=== PATIENT | male | born 1925 | race Caucasian/White ===

== ENCOUNTER 2016-10-03 12:08 | Inpatient (IN) | payer MEDICARE, OTHER ==
[2016-10-03] MEDS ORDERED: Albuterol/Ipratropium 3.0-0.5 MG/3 ML Neb Soln ONE (12:15)
--- NOTE | 2016-10-03 12:36 | EDM.PDOC ---
ED HISTORY OF PRESENT ILLNESS - General Chief Complaint: Respiratory Problem Stated Complaint: sob, hypoxia Time Seen by Provider: 10/03/16 12:10 Source of Information: Reports: Patient, EMS History Limitations: Reports: Respiratory distress - History of Present Illness INITIAL COMMENTS - FREE TEXT/NARRATIVE: The patient is brought to the ER by EMS from home with complaint of shortness of breath and cough. He was recently admitted to [facility] in [place] for RLL pneumonia and treated with Levaquin and discharged on 09/01/2016. EMS reports that the patient's daughter states that he has been ill since then. The patient reports he has been coughing and short of breath since he has been home and he admits to fever, chills, and bodyaches. He denies chest pain or orthopnea currently. Reportedly he has a history of [place] in the past. He denies nausea, vomiting, diarrhea, hematemesis, coffee-ground emesis, hematochezia, melena, dysuria, and hematuria. He denies other symptoms or complaints currently. - Related Data Allergies/ADRs: Allergies Allergy/AdvReac Type Severity Reaction Status Date / Time doxycycline Allergy Cannot Verified 10/03/16 12:16 Remember Penicillins Allergy Cannot Verified 10/03/16 12:16 Remember Sulfa (Sulfonamide Allergy Cannot Verified 10/03/16 12:16 Antibiotics) Remember Home Meds: Home Meds Albuterol/Ipratropium [DuoNeb 3.0-0.5 MG/3 ML] 3 ml INH TID 09/01/15 [History] Dutasteride [Avodart] 0.5 mg PO QAM 09/01/15 [History] Bumetanide 0.5 mg PO DAILY 09/19/15 [History] Nitroglycerin [Nitrostat] 0.4 mg SL ASDIRECTED PRN 09/19/15 [History] Sennosides/Docusate Sodium [Senna-Docusate Sodium] 1 tab PO BID 09/19/15 [ History] Simvastatin [Zocor] 10 mg PO BEDTIME 09/19/15 [History] Tamsulosin [Flomax] 0.4 mg PO PCBREAKFAST 09/19/15 [History] Acetaminophen 650 mg PO Q6H PRN 10/03/16 [History] Aspirin [Adult Low Dose Aspirin EC] 81 mg PO DAILY 10/03/16 [History] Calcium Carbonate/Vitamin D3 [Calcium 500 + Vit D 200 Caplet] 2 each PO BID [History] Cyanocobalamin (Vitamin B-12) [B-12] 1,000 mcg PO DAILY 10/03/16 [History] Ferrous Sulfate [Iron] 325 mg PO BID 10/03/16 [History] Magnesium Oxide 400 mg PO BID 10/03/16 [History] Metoprolol Succinate [Toprol XL] 25 mg PO DAILY 10/03/16 [History] Ubidecarenone [Coenzyme Q-10] 100 mg PO DAILY 10/03/16 [History] Past Medical History HEENT History: Reports: Other (see below) Other HEENT History: wears glasses Cardiovascular History: Reports: High cholesterol, Hypertension Respiratory History: Reports: COPD Genitourinary History: Reports: Prostate disorder Musculoskeletal History: Reports: Osteoarthritis - Past Surgical History Musculoskeletal Surgical History: Reports: Hip replacement Social & Family History - Tobacco Use Smoking Status *Q: Current Every Day Smoker Years of Tobacco use: 74 Packs/Tins Daily: 0.5 Used Tobacco, but Quit: No Second Hand Smoke Exposure: Yes - Recreational Drug Use Recreational Drug Use: No ED ROS GENERAL - Review of Systems Review Of Systems: See Below Constitutional: Reports: no symptoms, fever, chills, fatigue, weight loss (Over months.) HEENT: Reports: No symptoms Respiratory: Reports: Shortness of Breath, Cough Cardiovascular: Reports: No symptoms. Denies: Chest pain, Blood pressure problem, Dyspnea on exertion, Orthopnea, Palpitations Endocrine: Reports: no symptoms GI/Abdominal: Reports: No symptoms. Denies: Abdominal pain, Constipation, Diarrhea, Hematochezia, Melena, Nausea, Vomiting : Reports: no symptoms Musculoskeletal: Reports: muscle pain Skin: Reports: no symptoms Neurological: Reports: No Symptoms Psychiatric: Reports: No symptoms Hematologic/Lymphatic: Reports: no symptoms Immunologic: Reports: no symptoms ED EXAM, GENERAL - Physical Exam Exam: See Below Exam Limited By: Respiratory distress General Appearance: alert, WD/WN, moderate distress (Respiratory with tachypnea) , cachetic Eye Exam: bilateral eye: EOMI, normal inspection, PERRL Ears: normal external exam, normal canal, hearing grossly normal, normal TMs Ear Exam: bilateral ear: auricle normal, canal normal, TM normal Nose: normal inspection, normal mucosa, no blood Throat/Mouth: Normal inspection, Normal lips, Normal teeth, Normal gums, Normal oropharynx, Normal voice, No airway compromise Head: atraumatic, normocephalic Neck: normal inspection Respiratory/Chest: no accessory muscle use, chest non-tender, respiratory distress (Moderate with tachypnea), decreased breath sounds, rhonchi (Bilateral lower lobes, R > L). No: crackles, rales, wheezing, stridor, pleural rub, accessory muscle use, retractions Cardiovascular: normal peripheral pulses, regular rate, rhythm, no edema, no gallop, no murmur, no rub Peripheral Pulses: 2+: radial (L), radial (R), dorsalis pedis (L), dorsalis pedis (R) GI/Abdominal: normal bowel sounds, soft, non tender, no organomegaly, no distention Back Exam: normal inspection, full range of motion. No: CVA tenderness (L), CVA tenderness (R), paraspinal tenderness, vertebral tenderness Extremities: normal inspection, normal range of motion, non-tender, no pedal edema, normal capillary refill, mottled, pallor. No: Rivera's Sign Neurological: oriented (Person, Place, Location, Situation, Month, and Year. Unable to tell me day or date.), CN II-XII intact, normal reflexes, no motor/ sensory deficits, other (No pronator drift of arms or legs. No dysmetria. Normal tone. No clonus or spasticity. ) Skin Exam: Dry, Intact, Cool, Mottled, Pallor Lymphatic: no adenopathy Course - Vital Signs Last Recorded V/S: Last Vital Signs Temp 35.9 C 10/03/16 12:22 Pulse 92 10/03/16 12:48 Resp 20 10/03/16 12:48 BP 108/74 10/03/16 12:48 Pulse Ox 92 L 10/03/16 12:48 - Orders/Labs/Meds Orders: Active Orders 24 hr Category Date Time Status EKG Documentation Completion [RC] STAT Care 10/03/16 12:27 Active Chest 1V Frontal [CR] Stat Exams 10/03/16 12:26 Taken CULTURE BLOOD [BC] Stat Lab 10/03/16 12:30 Received CULTURE BLOOD [BC] Stat Lab 10/03/16 12:46 Received Blood Culture x2 Reflex Set [OM.PC] Stat Oth 10/03/16 12:26 Ordered Labs: Laboratory Tests 10/03/16 10/03/16 10/03/16 Range/Units 12:30 12:30 12:30 WBC 26.9 H (4.0-10.2) K/uL RBC 3.24 L (4.33-5.41) M/uL Hgb 9.8 L (13.1-16.8) g/dL Hct 31.1 L (39.0-49.0) % MCV 96.0 D (84.0-98.0) fL MCH 30.2 (28.2-33.3) pg MCHC 31.5 L (31.7-36.0) g/dL RDW 14.4 H (11.2-14.1) % Plt Count 318 D (150-350) K/uL Neut % (Auto) 92.5 H (45.0-80.0) % Lymph % (Auto) 4.1 L (10.0-50.0) % [place] % (Auto) 3.3 (2.0-14.0) % Eos % (Auto) 0.0 (0.0-5.0) % Baso % (Auto) 0.1 (0.0-2.0) % Neut # (Auto) 24.86 H (1.40-7.00) K/uL Lymph # (Auto) 1.10 (0.50-3.50) K/uL [place] # (Auto) 0.90 (0.00-1.00) K/uL Eos # (Auto) 0.01 (0.00-0.50) K/uL Baso # (Auto) 0.02 (0.00-0.20) K/uL Sodium 138 (136-145) mmol/L Potassium 4.5 (3.5-5.1) mmol/L Chloride 105 (98-107) mmol/L Carbon Dioxide 14.3 L (21.0-32.0) mmol/L BUN 87 H D (7-18) mg/dL Creatinine 2.68 H D (0.51-1.17) mg/dL Est Cr Clr Drug Dosing 11.61 mL/min Estimated GFR (MDRD) 23 mL/min Glucose 183 H (74-106) mg/dL Lactic Acid 2.4 H (0.4-2.0) mmol/L Calcium 8.2 L (8.5-10.1) mg/dL Total Bilirubin 0.5 (0.2-1.0) mg/dL AST 49 H (15-37) U/L ALT 74 (12-78) U/L Alkaline Phosphatase 240 H (46-116) IU/L Creatine Kinase 14 L (26-308) U/L Creatine Kinase Index 12.9 H* (0.0-2.5) % CK-MB (CK-2) 1.80 (0.00-3.60) ng/mL Troponin I 0.023 (0.000-0.056) ng/mL C-Reactive Protein 16.9 H (<=0.9) mg/dL Total Protein 6.8 (6.4-8.2) g/dL Albumin 2.0 L (3.4-5.0) g/dL Meds: Medications Discontinued Medications Generic Name Dose Route Start Last Admin Trade Name Freq PRN Reason Stop Dose Admin Albuterol/Ipratropium Confirm 10/03/16 12:15 10/03/16 12:20 Duoneb 3.0-0.5 Mg/3 Ml Administered 10/03/16 12:16 3 ml Dose Administration 3 ml .ROUTE .STK-MED ONE - Radiology Interpretation Free Text/Narrative:: CXR shows significant RLL consolidation consistent with RLL pneumonia. Departure - Departure Time of Disposition: 13:49 Disposition: Admitted As Inpatient 68 Clinical Impression: Hypoxia, Normocytic anemia, Chronic renal failure, stage 4 (severe) RLL pneumonia Qualifiers: Pneumonia type: due to unspecified organism Qualified Code(s): J18.1 - Lobar pneumonia, unspecified organism Leukocytosis Qualifiers: Leukocytosis type: bandemia Qualified Code(s): D72.825 - Bandemia Forms: ED Department Discharge - My Orders Last 24 Hours: My Active Orders 10/03/16 12:26 Chest 1V Frontal [CR] Stat Blood Culture x2 Reflex Set [OM.PC] Stat 10/03/16 12:27 EKG Documentation Completion [RC] STAT 10/03/16 12:30 CULTURE BLOOD [BC] Stat 10/03/16 12:46 CULTURE BLOOD [BC] Stat - Assessment/Plan Last 24 Hours: My Active Orders 10/03/16 12:26 Chest 1V Frontal [CR] Stat Blood Culture x2 Reflex Set [OM.PC] Stat 10/03/16 12:27 EKG Documentation Completion [RC] STAT 10/03/16 12:30 CULTURE BLOOD [BC] Stat 10/03/16 12:46 CULTURE BLOOD [BC] Stat Assessment:: RLL pneumonia with leukocytosis. Hypoxia. Normocytic Anemia. Chronic Renal Failure, Stage 4. Plan: 1. Admit to acute inpatient. 2. Levaquin 750 mg IV x 1, then 500 mg IV every 48 hours given renal failure. 3. Solumedrol 125 mg IV every 6 hours. 4. Albuterol nebulizers every 4 hours scheduled and every 1 hour as needed. 5. Oxygen by nasal cannula to target O2 > 92%. 6. Regular diet with Boost Shakes 5 times daily for nutritional supplementation given malnutrition. 7. ABG on the floor. 8. ANN hose and Lovenox for DVT prophylaxis. 9. Incentive spirometry for pneumonia prophylaxis. PLEASE USE ER NOTE ADMISSION HISTORY AND PHYSICAL.
[2016-10-03] MEDS ORDERED: Levofloxacin/Dextrose 5%-Water 750 MG in Premix Bag 1 BAG IV ONE (15:17)
--- NOTE | 2016-10-03 15:25 | PCM.HPR ---
H & P Addendum review - H & P Addendum Review Date of Original H & P: 10/03/16 (Please see ER note for Admission History and Physical including Assessment and Plan.) Date Reviewed: 10/03/16 Time Reviewed: 13:58 Patient was examined: No Changes
[2016-10-03 15:33] LABS: O2 DELIVERY DEVICE NASAL CANNULA
[2016-10-03 15:34] LABS: BASE EXCESS ARTERIAL -13 mmol/L (-2-3); BICARBONATE,ARTERIAL 14.2 mmol/L (22-26); O2 SATURATION ARTERIAL 100 % (95-98); PCO2 ARTERIAL 32 mmHG (35-45); PO2 ARTERIAL 212 mmHG (80-105)
[2016-10-03] MEDS ORDERED: Albuterol 0.083% 2.5 MG/3 ML Neb Soln NEB PRN (16:00)
[2016-10-03] MEDS ORDERED: Acetaminophen 325 MG Tab PO PRN (16:00)
[2016-10-03] MEDS: methylPREDNISolone Sodium Succinate 125 MG/2 ML SDV IVPUSH SCH ×2 (16:10→23:03)
[2016-10-03] MEDS: Albuterol 0.083% 2.5 MG/3 ML Neb Soln NEB SCH ×2 (16:10→20:16)
[2016-10-03] MEDS: Magnesium Oxide 400 MG Tab PO SCH (17:31)
[2016-10-03] MEDS: Ferrous Sulfate 325 MG Tab PO SCH (17:32)
[2016-10-03] MEDS: Simvastatin 10 MG Tab PO SCH (20:16)
[2016-10-03] MEDS: Sodium Chloride 0.9% 1,000 ML IV SCH (20:22)
[2016-10-04] MEDS: Albuterol 0.083% 2.5 MG/3 ML Neb Soln NEB SCH ×7 (00:40→23:28)
[2016-10-04] MEDS: methylPREDNISolone Sodium Succinate 125 MG/2 ML SDV IVPUSH SCH ×4 (05:26→21:29)
[2016-10-04] MEDS: Tamsulosin 0.4 MG Cap.ER PO SCH (07:23)
[2016-10-04] MEDS: Ferrous Sulfate 325 MG Tab PO SCH ×2 (07:23→18:30)
[2016-10-04] MEDS: Aspirin 81 MG Tab.EC PO SCH (07:23)
[2016-10-04] MEDS: Dutasteride 0.5 MG Cap PO SCH (07:23)
[2016-10-04] MEDS: Magnesium Oxide 400 MG Tab PO SCH ×2 (07:23→18:30)
[2016-10-04] MEDS: Cyanocobalamin (Vitamin B12) 1,000 MCG Tab PO SCH (07:23)
[2016-10-04] MEDS: Metoprolol Succinate 25 MG Tab.ER PO SCH (07:26)
[2016-10-04 11:34] LABS: O2 DELIVERY DEVICE NASAL CANNULA
[2016-10-04 11:36] LABS: PCO2 ARTERIAL 30 mmHG (35-45); PO2 ARTERIAL 111 mmHG (80-105)
[2016-10-04 11:37] LABS: BASE EXCESS ARTERIAL -13 mmol/L (-2-3); BICARBONATE,ARTERIAL 13.5 mmol/L (22-26); O2 SATURATION ARTERIAL 98 % (95-98)
[2016-10-04] MEDS ORDERED: Sodium Bicarbonate 8.4% 50 MEQ/50 ML Syringe IVPUSH ONE (12:19)
[2016-10-04] MEDS: Piperacillin/Tazobactam 2.25 GM in Sodium Chloride 0.9% 100 ML IV SCH ×2 (12:54→19:34)
[2016-10-04] MEDS: VANCOMYCIN IV SCH (14:33)
[2016-10-04] MEDS: SODIUM CHLORIDE 0.9% IV SCH (14:33)
--- NOTE | 2016-10-04 14:58 | PCM.PN ---
- General Info Date of Service: 10/03/16 Admission Dx/Problem (Free Text): RLL pneumonia. Hypoxia. Normocytic anemia. Chronic Renal Failure, Stage 4. Subjective Update: The patient reports SOB and coughing are improved. He denies chest pain. He denies fever, but admits to chills and bodyaches. He admits to lethargy and fatigue and states he "has all this good food but no appetite". - Review of Systems General: Reports: Weakness, Fatigue, Malaise, Chills. Denies: Fever, Appetite HEENT: Reports: no symptoms Pulmonary: Reports: cough, sputum. Denies: wheezing Cardiovascular: Denies: Chest Pain, Palpitations, Dyspnea on Exertion, Orthopnea , Edema Gastrointestinal: Reports: No symptoms Genitourinary: Reports: no symptoms Musculoskeletal: Reports: no symptoms Skin: Reports: no symptoms Neurological: Reports: No Symptoms Psychiatric: Reports: no symptoms - Patient Data Vitals - most recent: Last Vital Signs Temp 36.1 C 10/04/16 12:00 Pulse 71 10/04/16 12:00 Resp 16 10/04/16 12:00 BP 111/73 10/04/16 12:00 Pulse Ox 100 10/04/16 12:00 Weight - most recent: 43.545 kg I&O - last 24 hours: Intake & Output 10/03/16 10/04/16 10/04/16 22:59 06:59 14:59 Intake Total 150 795 Balance 150 795 Lab Results last 24 hrs: Laboratory Results - last 24 hr 10/03/16 10/04/16 10/04/16 Range/Units 15:25 06:45 06:45 WBC 15.2 H (4.0-10.2) K/uL RBC 2.87 L (4.33-5.41) M/uL Hgb 8.6 L (13.1-16.8) g/dL Hct 26.8 L (39.0-49.0) % MCV 93.4 (84.0-98.0) fL MCH 30.0 (28.2-33.3) pg MCHC 32.1 (31.7-36.0) g/dL RDW 14.1 (11.2-14.1) % Plt Count 302 (150-350) K/uL Neut % (Auto) 96.9 H (45.0-80.0) % Lymph % (Auto) 2.0 L (10.0-50.0) % [place] % (Auto) 1.1 L (2.0-14.0) % Eos % (Auto) 0.0 (0.0-5.0) % Baso % (Auto) 0.0 (0.0-2.0) % Neut # (Auto) 14.73 H (1.40-7.00) K/uL Lymph # (Auto) 0.31 L (0.50-3.50) K/uL [place] # (Auto) 0.17 (0.00-1.00) K/uL Eos # (Auto) 0.00 (0.00-0.50) K/uL Baso # (Auto) 0.00 (0.00-0.20) K/uL ABG pH 7.26 L* (7.35-7.45) ABG pCO2 32 L (35-45) mmHG ABG pO2 212 H (80-105) mmHG ABG HCO3 14.2 L (22-26) mmol/L ABG Total CO2 15 L (23-27) mmol/L ABG O2 Saturation 100 H (95-98) % ABG Base Excess -13 L (-2-3) mmol/L O2 Delivery Device Nasal cannula Sodium 135 L (136-145) mmol/L Potassium 4.3 (3.5-5.1) mmol/L Chloride 105 (98-107) mmol/L Carbon Dioxide 13.3 L (21.0-32.0) mmol/L BUN 86 H (7-18) mg/dL Creatinine 2.55 H (0.51-1.17) mg/dL Est Cr Clr Drug Dosing 12.33 mL/min Estimated GFR (MDRD) 24 mL/min Glucose 184 H (74-106) mg/dL Lactic Acid (0.4-2.0) mmol/L Calcium 7.6 L (8.5-10.1) mg/dL Total Bilirubin 0.3 (0.2-1.0) mg/dL AST 47 H (15-37) U/L ALT 65 (12-78) U/L Alkaline Phosphatase 225 H (46-116) IU/L C-Reactive Protein 15.6 H (<=0.9) mg/dL Total Protein 6.2 L (6.4-8.2) g/dL Albumin 1.8 L (3.4-5.0) g/dL 10/04/16 10/04/16 Range/Units 11:00 11:25 WBC (4.0-10.2) K/uL RBC (4.33-5.41) M/uL Hgb (13.1-16.8) g/dL Hct (39.0-49.0) % MCV (84.0-98.0) fL MCH (28.2-33.3) pg MCHC (31.7-36.0) g/dL RDW (11.2-14.1) % Plt Count (150-350) K/uL Neut % (Auto) (45.0-80.0) % Lymph % (Auto) (10.0-50.0) % [place] % (Auto) (2.0-14.0) % Eos % (Auto) (0.0-5.0) % Baso % (Auto) (0.0-2.0) % Neut # (Auto) (1.40-7.00) K/uL Lymph # (Auto) (0.50-3.50) K/uL [place] # (Auto) (0.00-1.00) K/uL Eos # (Auto) (0.00-0.50) K/uL Baso # (Auto) (0.00-0.20) K/uL ABG pH 7.27 L* (7.35-7.45) ABG pCO2 30 L (35-45) mmHG ABG pO2 111 H (80-105) mmHG ABG HCO3 13.5 L (22-26) mmol/L ABG Total CO2 14 L (23-27) mmol/L ABG O2 Saturation 98 (95-98) % ABG Base Excess -13 L (-2-3) mmol/L O2 Delivery Device Nasal cannula Sodium (136-145) mmol/L Potassium (3.5-5.1) mmol/L Chloride (98-107) mmol/L Carbon Dioxide (21.0-32.0) mmol/L BUN (7-18) mg/dL Creatinine (0.51-1.17) mg/dL Est Cr Clr Drug Dosing mL/min Estimated GFR (MDRD) mL/min Glucose (74-106) mg/dL Lactic Acid 1.5 (0.4-2.0) mmol/L Calcium (8.5-10.1) mg/dL Total Bilirubin (0.2-1.0) mg/dL AST (15-37) U/L ALT (12-78) U/L Alkaline Phosphatase (46-116) IU/L C-Reactive Protein (<=0.9) mg/dL Total Protein (6.4-8.2) g/dL Albumin (3.4-5.0) g/dL Med Orders - Current: Current Medications Acetaminophen (Tylenol) 650 mg PO Q6H PRN PRN Reason: Fever Albuterol (Proventil Neb Soln) 2.5 mg NEB Q4HRRT [facility] Last Admin: 10/04/16 12:54 Dose: 2.5 mg Albuterol (Proventil Neb Soln) 2.5 mg NEB Q2H PRN PRN Reason: Wheezing Aspirin (Halfprin) 81 mg PO DAILY [facility] Last Admin: 10/04/16 07:23 Dose: 81 mg Cyanocobalamin (Vitamin B12) 1,000 mcg PO DAILY [facility] Last Admin: 10/04/16 07:23 Dose: 1,000 mcg Dutasteride (Avodart) 0.5 mg PO QAM [facility] Last Admin: 10/04/16 07:23 Dose: 0.5 mg Ferrous Sulfate (Ferrous Sulfate) 325 mg PO BID [facility] Last Admin: 10/04/16 07:23 Dose: 325 mg Sodium Chloride (Normal Saline) 1,000 mls @ 50 mls/hr IV ASDIRECTED [facility] Last Admin: 10/03/16 20:22 Dose: 50 mls/hr Piperacillin Sod/Tazobactam (Sod 2.25 gm/ Sodium Chloride) 100 mls @ 200 mls/ hr IV Q6H [facility] Last Admin: 10/04/16 12:54 Dose: 200 mls/hr Vancomycin HCl 0.65 gm/ Sodium (Chloride) 250 mls @ 215 mls/hr IV Q24H [facility] Last Admin: 10/04/16 14:33 Dose: 215 mls/hr Magnesium Oxide (Magnesium Oxide) 400 mg PO BID [facility] Last Admin: 10/04/16 07:23 Dose: 400 mg Methylprednisolone Sodium Succinate (Solu-Medrol) 125 mg IVPUSH Q6H [facility] Last Admin: 10/04/16 09:54 Dose: 125 mg Metoprolol Succinate (Toprol Xl) 25 mg PO DAILY [facility] Last Admin: 10/04/16 07:26 Dose: 25 mg Simvastatin (Zocor) 10 mg PO BEDTIME [facility] Last Admin: 10/03/16 20:16 Dose: 10 mg Sodium Chloride (Saline Flush) 10 ml FLUSH ASDIRECTED PRN PRN Reason: Keep Vein Open Tamsulosin HCl (Flomax) 0.4 mg PO DAILY [facility] Last Admin: 10/04/16 07:23 Dose: 0.4 mg Discontinued Medications Albuterol/Ipratropium (Duoneb 3.0-0.5 Mg/3 Ml) Confirm Administered Dose 3 ml .ROUTE .STK-MED ONE Stop: 10/03/16 12:16 Last Admin: 10/03/16 12:20 Dose: 3 ml Levofloxacin/Dextrose 750 mg/ (Premix) 150 mls @ 100 mls/hr IV ONETIME ONE Stop: 10/03/16 16:46 Last Admin: 10/03/16 16:10 Dose: 100 mls/hr Levofloxacin/Dextrose 500 mg/ (Premix) 100 mls @ 100 mls/hr IV Q48H [facility] Sodium Bicarbonate (Sodium Bicarbonate 8.4%) 100 meq IVPUSH ONETIME ONE Stop: 10/04/16 12:20 Last Admin: 10/04/16 12:54 Dose: 100 meq - Exam General: alert, oriented (Person, Place, Location, Situation, and Month. Not oriented to day or date. ), lethargic, other (Cachectic.) HEENT: Pupils equal, Pupils reactive, EOMI, Mucous membr. moist/pink Lungs: Normal respiratory effort, Decreased breath sounds, Rhonchi ( Intermittent RLL > LLL). No: Crackles, Rales, Rub, Stridor, Wheezing Cardiovascular: Regular Rate, Regular Rhythm Abdomen: bowel sounds present, soft, no tenderness, no distension Extremities: no edema, no tenderness/swelling, no clubbing, no cyanosis Peripheral Pulses: 2+: radial (L), radial (R), dorsalis pedis (L), dorsalis pedis (R) Skin: dry, intact, cool. No: rash, ecchymosis Neurological: no new focal deficit Psy/Mental Status: alert, normal affect, normal mood - Problem List & Annotations (1) Lactic acidosis SNOMED Code(s): 59341470 Code(s): E87.2 - ACIDOSIS Status: Acute Priority: High Current Visit: Yes Annotation/Comment:: Persistent since yesterday. No other signs/symptoms of sepsis, no tachycardia, tachypnea improved, no hypotension, normothermic. Will treat with bicarbonate and follow closely. Will change to broad spectrum antibiotic coverage. Cultures pending. (2) Malnutrition SNOMED Code(s): 8662717 Code(s): E46 - UNSPECIFIED PROTEIN-CALORIE MALNUTRITION Status: Acute Priority: High Current Visit: Yes Annotation/Comment:: More than 30 pound weight loss in little over month. (3) RLL pneumonia SNOMED Code(s): 614614352 Code(s): J18.1 - LOBAR PNEUMONIA, UNSPECIFIED ORGANISM Status: Acute Current Visit: Yes Qualifiers: Pneumonia type: due to unspecified organism Qualified Code(s): J18.1 - Lobar pneumonia, unspecified organism (4) Hypoxia SNOMED Code(s): 240909866, 863109195 Code(s): R09.02 - HYPOXEMIA Status: Acute Priority: High Current Visit : Yes Annotation/Comment:: Resolved. (5) Chronic renal failure, stage 4 (severe) SNOMED Code(s): 06367120, 337526053 Code(s): N18.4 - CHRONIC KIDNEY DISEASE, STAGE 4 (SEVERE) Status: Acute Priority: Medium Current Visit: Yes Annotation/Comment:: Chronic. (6) Leukocytosis SNOMED Code(s): 959108731, 346876795 Code(s): D72.829 - ELEVATED WHITE BLOOD CELL COUNT, UNSPECIFIED Status: Acute Priority: High Current Visit: Yes Qualifiers: Leukocytosis type: bandemia Qualified Code(s): D72.825 - Bandemia Annotation/Comment:: Improved slightly from admission. (7) Normocytic anemia SNOMED Code(s): 885876794 Code(s): D64.9 - ANEMIA, UNSPECIFIED Status: Acute Current Visit: Yes Annotation/Comment:: Chronic, will continue to follow. - Problem List Review Problem List Initiated/Reviewed/Updated: Yes - My Orders Last 24 Hours: My Active Orders 10/03/16 15:10 Patient Status [ADT] Routine 10/03/16 15:13 Vital Signs [RC] Q4HR 10/03/16 15:15 Sodium Chloride 0.9% [Normal Saline] 1,000 ml IV ASDIRECTED 10/03/16 15:16 Notify Provider Vital Signs [RC] ASDIRECTED Pulse Oximetry [RC] CONTINUOUS 10/03/16 15:19 RT Aerosol Therapy [RC] ASDIRECTED 10/03/16 15:21 Code Status [Resuscitation Status] Routine 10/03/16 16:00 Acetaminophen [Tylenol] 650 mg PO Q6H PRN Albuterol [Proventil Neb Soln] 2.5 mg NEB Q2H PRN Albuterol [Proventil Neb Soln] 2.5 mg NEB Q4HRRT methylPREDNISolone Sod Succ [Solu-MEDROL] 125 mg IVPUSH Q6H 10/03/16 18:00 Ferrous Sulfate 325 mg PO BID Magnesium Oxide 400 mg PO BID 10/03/16 20:00 Simvastatin [Zocor] 10 mg PO BEDTIME 10/03/16 20:40 Oxygen Therapy [RC] ASDIRECTED 10/03/16 Dinner Regular Diet [DIET] 10/04/16 08:00 Aspirin [Halfprin] 81 mg PO DAILY Bumetanide [Bumetanide] DOSE UNIT RTE FREQ Cyanocobalamin (Vitamin B12) [Vitamin B12] 1,000 mcg PO DAILY Dutasteride [Avodart] 0.5 mg PO QAM Metoprolol Succinate [Toprol XL] 25 mg PO DAILY Tamsulosin [Flomax] 0.4 mg PO DAILY 10/04/16 12:29 Pharmacy Consult [Consult to Pharmacy] [CONS] Routine 10/04/16 12:59 Consult to Case Management [CONS] Routine Consult to Occupational Therapy [OT Evaluation and Treatment] [CONS] Routine Consult to Physical Therapy [PT Evaluation and Treatment] [CONS] Routine 10/04/16 13:00 Piperacillin/Tazobactam [Zosyn] 2.25 gm Sodium Chloride 0.9% [Normal Saline] 100 ml IV Q6H Sodium Chloride 0.9% [Saline Flush] 10 ml FLUSH ASDIRECTED PRN 10/04/16 14:00 Vancomycin 0.65 gm Sodium Chloride 0.9% [Normal Saline] 250 ml IV Q24H 10/04/16 20:00 ABG [BLOOD GAS ARTERIAL] [BG] Routine 10/05/16 07:00 CBC WITH AUTO DIFF [HEME] DAILY CMP [COMPREHENSIVE METABOLIC PN,CMP] [CHEM] DAILY CRP [C-REACTIVE PROTEIN] [CHEM] DAILY 10/05/16 13:30 VANCOMYCIN RANDOM [CHEM] Routine 10/06/16 07:00 CBC WITH AUTO DIFF [HEME] DAILY CMP [COMPREHENSIVE METABOLIC PN,CMP] [CHEM] DAILY CRP [C-REACTIVE PROTEIN] [CHEM] DAILY - Plan Plan:: 1. Bicarbonate 2 mEq/kg IV for lactic acidosis. Will recheck ABG at 20:00 and continue to follow closely. Continue to follow cultures which are pending. No other signs/symptoms of sepsis at this time. 2. Discontinued Levaquin. 3. Begin IV Vancomycin and Zosyn. 4. Continue albuterol nebulizers. 5. Continue Solumedrol 125 mg IV every 6 hours scheduled. 6. Wean oxygen per nasal cannula as tolerated. 7. Boost shakes with protein 5 times daily for malnutrition and malnourishment. 8. Nursing to perform bedside swallow evaluation. 9. Discussed possibility of transfer to larger tertiary care facility with patient and daughter but they refuse transfer and desire to stay locally. 10. PT/OT consult to assess and treat and discharge recommendations. Believe patient will require snf placement given progressive weight loss and cachexia and weakness. 11. SW consult for disposition planning and likely snf placement also to investigate possibility of neglect.
[2016-10-04] MEDS: Sodium Chloride 0.9% 10 ML Syringe FLUSH PRN ×3 (16:17→21:34)
[2016-10-04] MEDS: Simvastatin 10 MG Tab PO SCH (19:34)
[2016-10-04 20:15] LABS: O2 DELIVERY DEVICE NASAL CANNULA
[2016-10-04 20:19] LABS: BASE EXCESS ARTERIAL -9 mmol/L (-2-3); O2 SATURATION ARTERIAL 98 % (95-98); PO2 ARTERIAL 106 mmHG (80-105)
[2016-10-04 20:21] LABS: O2 FLOW RATE 3 L/min; PCO2 ARTERIAL 27 mmHG (35-45)
[2016-10-04] MEDS: Sodium Chloride 0.9% 1,000 ML IV SCH (21:29)
[2016-10-05] MEDS: Sodium Chloride 0.9% 10 ML Syringe FLUSH PRN ×5 (00:15→19:37)
[2016-10-05] MEDS: Piperacillin/Tazobactam 2.25 GM in Sodium Chloride 0.9% 100 ML IV SCH ×4 (00:15→19:37)
[2016-10-05] MEDS: methylPREDNISolone Sodium Succinate 125 MG/2 ML SDV IVPUSH SCH ×3 (03:11→21:06)
[2016-10-05] MEDS: Albuterol 0.083% 2.5 MG/3 ML Neb Soln NEB SCH ×3 (03:12→11:34)
[2016-10-05 07:02] LABS: BASE EXCESS ARTERIAL -10 mmol/L (-2-3); BICARBONATE,ARTERIAL 16.4 mmol/L (22-26); O2 DELIVERY DEVICE NASAL CANNULA; O2 SATURATION ARTERIAL 96 % (95-98); PCO2 ARTERIAL 32 mmHG (35-45); PO2 ARTERIAL 88 mmHG (80-105)
[2016-10-05] MEDS: Magnesium Oxide 400 MG Tab PO SCH ×2 (07:25→17:17)
[2016-10-05] MEDS: Aspirin 81 MG Tab.EC PO SCH (07:25)
[2016-10-05] MEDS: Cyanocobalamin (Vitamin B12) 1,000 MCG Tab PO SCH (07:25)
[2016-10-05] MEDS: Ferrous Sulfate 325 MG Tab PO SCH ×2 (07:26→17:17)
[2016-10-05] MEDS: Metoprolol Succinate 25 MG Tab.ER PO SCH (07:26)
[2016-10-05] MEDS: Dutasteride 0.5 MG Cap PO SCH (07:26)
[2016-10-05] MEDS: Tamsulosin 0.4 MG Cap.ER PO SCH (07:28)
[2016-10-05] MEDS ORDERED: Sodium Bicarbonate 8.4% 50 MEQ/50 ML Syringe IVPUSH ONE (10:43)
--- NOTE | 2016-10-05 12:35 | PCM.PN ---
- General Info Date of Service: 10/05/16 Admission Dx/Problem (Free Text): RLL pneumonia. Hypoxia. Normocytic anemia. Chronic Renal Failure, Stage 4. Subjective Update: The patient reports continued improvement in coughing and shortness of breath. He reports improved appetite and food intake has improved and he is drinking Boost shakes 5 times daily. He is sitting upright in a chair on my arrival and he looks better, is more alert, and has no distress. Functional Status: Reports: pain controlled - Review of Systems General: Reports: Weakness (Improved since admission. ), Fatigue (Improved since admission.) HEENT: Reports: no symptoms Pulmonary: Reports: shortness of breath (Improved from admission.), cough ( Improved. ), sputum (Improved. ). Denies: wheezing Cardiovascular: Denies: Chest Pain, Palpitations, Dyspnea on Exertion, Orthopnea , Edema Gastrointestinal: Reports: No symptoms Genitourinary: Reports: no symptoms Musculoskeletal: Reports: no symptoms Skin: Reports: no symptoms Neurological: Reports: No Symptoms Psychiatric: Reports: no symptoms - Patient Data Vitals - most recent: Last Vital Signs Temp 36.3 C 10/05/16 07:32 Pulse 59 L 10/05/16 07:32 Resp 18 10/05/16 07:32 BP 110/67 10/05/16 07:32 Pulse Ox 100 10/05/16 07:32 Weight - most recent: 46.7 kg I&O - last 24 hours: Intake & Output 10/04/16 10/05/16 10/05/16 22:59 06:59 14:59 Intake Total 1750 718 300 Output Total 400 Balance 1750 718 -100 Lab Results last 24 hrs: Laboratory Results - last 24 hr 10/04/16 10/05/16 10/05/16 Range/Units 20:00 06:45 06:45 WBC 19.0 H (4.0-10.2) K/uL RBC 2.45 L (4.33-5.41) M/uL Hgb 7.4 L* (13.1-16.8) g/dL Hct 22.7 L* (39.0-49.0) % MCV 92.7 (84.0-98.0) fL MCH 30.2 (28.2-33.3) pg MCHC 32.6 (31.7-36.0) g/dL RDW 14.0 (11.2-14.1) % Plt Count 272 (150-350) K/uL Neut % (Auto) 95.6 H (45.0-80.0) % Lymph % (Auto) 1.4 L (10.0-50.0) % Lincoln % (Auto) 2.9 (2.0-14.0) % Eos % (Auto) 0.0 (0.0-5.0) % Baso % (Auto) 0.1 (0.0-2.0) % Neut # (Auto) 18.14 H (1.40-7.00) K/uL Lymph # (Auto) 0.27 L (0.50-3.50) K/uL Lincoln # (Auto) 0.55 (0.00-1.00) K/uL Eos # (Auto) 0.00 (0.00-0.50) K/uL Baso # (Auto) 0.01 (0.00-0.20) K/uL PT (9.8-11.7) SEC INR APTT (23.5-30.0) SEC ABG pH 7.38 (7.35-7.45) ABG pCO2 27 L* (35-45) mmHG ABG pO2 106 H (80-105) mmHG ABG HCO3 16.0 L (22-26) mmol/L ABG Total CO2 17 L (23-27) mmol/L ABG O2 Saturation 98 (95-98) % ABG Base Excess -9 L (-2-3) mmol/L O2 Delivery Device Nasal cannula Oxygen Flow Rate 3 L/min Sodium 140 (136-145) mmol/L Potassium 3.5 (3.5-5.1) mmol/L Chloride 108 H (98-107) mmol/L Carbon Dioxide 17.5 L (21.0-32.0) mmol/L BUN 80 H (7-18) mg/dL Creatinine 2.53 H (0.51-1.17) mg/dL Est Cr Clr Drug Dosing 12.43 mL/min Estimated GFR (MDRD) 24 mL/min Glucose 180 H (74-106) mg/dL Lactic Acid (0.4-2.0) mmol/L Uric Acid (2.6-7.2) mg/dL Calcium 6.9 L (8.5-10.1) mg/dL Total Bilirubin 0.3 (0.2-1.0) mg/dL AST 39 H (15-37) U/L ALT 58 (12-78) U/L Alkaline Phosphatase 185 H (46-116) IU/L C-Reactive Protein 6.6 H (<=0.9) mg/dL Total Protein 5.3 L (6.4-8.2) g/dL Albumin 1.6 L (3.4-5.0) g/dL Random Vancomycin ug/mL Blood Type Gel Antibody Screen Crossmatch 10/05/16 10/05/16 10/05/16 Range/Units 06:45 06:45 06:55 WBC (4.0-10.2) K/uL RBC (4.33-5.41) M/uL Hgb (13.1-16.8) g/dL Hct (39.0-49.0) % MCV (84.0-98.0) fL MCH (28.2-33.3) pg MCHC (31.7-36.0) g/dL RDW (11.2-14.1) % Plt Count (150-350) K/uL Neut % (Auto) (45.0-80.0) % Lymph % (Auto) (10.0-50.0) % Lincoln % (Auto) (2.0-14.0) % Eos % (Auto) (0.0-5.0) % Baso % (Auto) (0.0-2.0) % Neut # (Auto) (1.40-7.00) K/uL Lymph # (Auto) (0.50-3.50) K/uL Lincoln # (Auto) (0.00-1.00) K/uL Eos # (Auto) (0.00-0.50) K/uL Baso # (Auto) (0.00-0.20) K/uL PT (9.8-11.7) SEC INR APTT (23.5-30.0) SEC ABG pH 7.32 L (7.35-7.45) ABG pCO2 32 L (35-45) mmHG ABG pO2 88 (80-105) mmHG ABG HCO3 16.4 L (22-26) mmol/L ABG Total CO2 17 L (23-27) mmol/L ABG O2 Saturation 96 (95-98) % ABG Base Excess -10 L (-2-3) mmol/L O2 Delivery Device Nasal cannula Oxygen Flow Rate L/min Sodium (136-145) mmol/L Potassium (3.5-5.1) mmol/L Chloride (98-107) mmol/L Carbon Dioxide (21.0-32.0) mmol/L BUN (7-18) mg/dL Creatinine (0.51-1.17) mg/dL Est Cr Clr Drug Dosing mL/min Estimated GFR (MDRD) mL/min Glucose (74-106) mg/dL Lactic Acid 0.8 (0.4-2.0) mmol/L Uric Acid (2.6-7.2) mg/dL Calcium (8.5-10.1) mg/dL Total Bilirubin (0.2-1.0) mg/dL AST (15-37) U/L ALT (12-78) U/L Alkaline Phosphatase (46-116) IU/L C-Reactive Protein (<=0.9) mg/dL Total Protein (6.4-8.2) g/dL Albumin (3.4-5.0) g/dL Random Vancomycin ug/mL Blood Type O NEGATIVE Gel Antibody Screen Negative Crossmatch See Detail 10/05/16 10/05/16 10/05/16 Range/Units 10:55 10:55 10:55 WBC (4.0-10.2) K/uL RBC (4.33-5.41) M/uL Hgb (13.1-16.8) g/dL Hct (39.0-49.0) % MCV (84.0-98.0) fL MCH (28.2-33.3) pg MCHC (31.7-36.0) g/dL RDW (11.2-14.1) % Plt Count (150-350) K/uL Neut % (Auto) (45.0-80.0) % Lymph % (Auto) (10.0-50.0) % Lincoln % (Auto) (2.0-14.0) % Eos % (Auto) (0.0-5.0) % Baso % (Auto) (0.0-2.0) % Neut # (Auto) (1.40-7.00) K/uL Lymph # (Auto) (0.50-3.50) K/uL Lincoln # (Auto) (0.00-1.00) K/uL Eos # (Auto) (0.00-0.50) K/uL Baso # (Auto) (0.00-0.20) K/uL PT (9.8-11.7) SEC INR APTT 37.0 H (23.5-30.0) SEC ABG pH (7.35-7.45) ABG pCO2 (35-45) mmHG ABG pO2 (80-105) mmHG ABG HCO3 (22-26) mmol/L ABG Total CO2 (23-27) mmol/L ABG O2 Saturation (95-98) % ABG Base Excess (-2-3) mmol/L O2 Delivery Device Oxygen Flow Rate L/min Sodium (136-145) mmol/L Potassium (3.5-5.1) mmol/L Chloride (98-107) mmol/L Carbon Dioxide (21.0-32.0) mmol/L BUN (7-18) mg/dL Creatinine (0.51-1.17) mg/dL Est Cr Clr Drug Dosing mL/min Estimated GFR (MDRD) mL/min Glucose (74-106) mg/dL Lactic Acid (0.4-2.0) mmol/L Uric Acid 6.3 (2.6-7.2) mg/dL Calcium (8.5-10.1) mg/dL Total Bilirubin (0.2-1.0) mg/dL AST (15-37) U/L ALT (12-78) U/L Alkaline Phosphatase (46-116) IU/L C-Reactive Protein (<=0.9) mg/dL Total Protein (6.4-8.2) g/dL Albumin (3.4-5.0) g/dL Random Vancomycin 6.2 ug/mL Blood Type Gel Antibody Screen Crossmatch 10/05/16 Range/Units 10:55 WBC (4.0-10.2) K/uL RBC (4.33-5.41) M/uL Hgb (13.1-16.8) g/dL Hct (39.0-49.0) % MCV (84.0-98.0) fL MCH (28.2-33.3) pg MCHC (31.7-36.0) g/dL RDW (11.2-14.1) % Plt Count (150-350) K/uL Neut % (Auto) (45.0-80.0) % Lymph % (Auto) (10.0-50.0) % Lincoln % (Auto) (2.0-14.0) % Eos % (Auto) (0.0-5.0) % Baso % (Auto) (0.0-2.0) % Neut # (Auto) (1.40-7.00) K/uL Lymph # (Auto) (0.50-3.50) K/uL Lincoln # (Auto) (0.00-1.00) K/uL Eos # (Auto) (0.00-0.50) K/uL Baso # (Auto) (0.00-0.20) K/uL PT 20.0 H D (9.8-11.7) SEC INR 1.8 APTT (23.5-30.0) SEC ABG pH (7.35-7.45) ABG pCO2 (35-45) mmHG ABG pO2 (80-105) mmHG ABG HCO3 (22-26) mmol/L ABG Total CO2 (23-27) mmol/L ABG O2 Saturation (95-98) % ABG Base Excess (-2-3) mmol/L O2 Delivery Device Oxygen Flow Rate L/min Sodium (136-145) mmol/L Potassium (3.5-5.1) mmol/L Chloride (98-107) mmol/L Carbon Dioxide (21.0-32.0) mmol/L BUN (7-18) mg/dL Creatinine (0.51-1.17) mg/dL Est Cr Clr Drug Dosing mL/min Estimated GFR (MDRD) mL/min Glucose (74-106) mg/dL Lactic Acid (0.4-2.0) mmol/L Uric Acid (2.6-7.2) mg/dL Calcium (8.5-10.1) mg/dL Total Bilirubin (0.2-1.0) mg/dL AST (15-37) U/L ALT (12-78) U/L Alkaline Phosphatase (46-116) IU/L C-Reactive Protein (<=0.9) mg/dL Total Protein (6.4-8.2) g/dL Albumin (3.4-5.0) g/dL Random Vancomycin ug/mL Blood Type Gel Antibody Screen Crossmatch Manjinder Results last 24 hrs: Microbiology 10/05/16 10:40 Stool Occult Blood (MANJINDER) - Final Stool / Feces Med Orders - Current: Current Medications Acetaminophen (Tylenol) 650 mg PO Q6H PRN PRN Reason: Fever Albuterol (Proventil Neb Soln) 2.5 mg NEB Q4HRRT [facility] Last Admin: 10/05/16 11:34 Dose: 2.5 mg Albuterol (Proventil Neb Soln) 2.5 mg NEB Q2H PRN PRN Reason: Wheezing Aspirin (Halfprin) 81 mg PO DAILY [facility] Last Admin: 10/05/16 07:25 Dose: 81 mg Cyanocobalamin (Vitamin B12) 1,000 mcg PO DAILY [facility] Last Admin: 10/05/16 07:25 Dose: 1,000 mcg Dutasteride (Avodart) 0.5 mg PO QAM [facility] Last Admin: 10/05/16 07:26 Dose: 0.5 mg Ferrous Sulfate (Ferrous Sulfate) 325 mg PO BID [facility] Last Admin: 10/05/16 07:26 Dose: 325 mg Furosemide (Lasix) 20 mg IVPUSH ONETIME ONE Stop: 10/05/16 13:31 Furosemide (Lasix) 20 mg IVPUSH ONETIME ONE Stop: 10/05/16 15:31 Sodium Chloride (Normal Saline) 1,000 mls @ 50 mls/hr IV ASDIRECTED [facility] Last Admin: 10/04/16 21:29 Dose: 50 mls/hr Piperacillin Sod/Tazobactam (Sod 2.25 gm/ Sodium Chloride) 100 mls @ 200 mls/ hr IV Q6H [facility] Last Admin: 10/05/16 07:25 Dose: 200 mls/hr Vancomycin HCl 0.65 gm/ Sodium (Chloride) 250 mls @ 215 mls/hr IV Q24H [facility] Last Admin: 10/04/16 14:33 Dose: 215 mls/hr Magnesium Oxide (Magnesium Oxide) 400 mg PO BID [facility] Last Admin: 10/05/16 07:25 Dose: 400 mg Methylprednisolone Sodium Succinate (Solu-Medrol) 125 mg IVPUSH Q12H [facility] Metoprolol Succinate (Toprol Xl) 25 mg PO DAILY [facility] Last Admin: 10/05/16 07:26 Dose: 25 mg Simvastatin (Zocor) 10 mg PO BEDTIME [facility] Last Admin: 10/04/16 19:34 Dose: 10 mg Sodium Chloride (Saline Flush) 10 ml FLUSH ASDIRECTED PRN PRN Reason: Keep Vein Open Last Admin: 10/05/16 11:23 Dose: 10 ml Tamsulosin HCl (Flomax) 0.4 mg PO DAILY [facility] Last Admin: 10/05/16 07:28 Dose: 0.4 mg Discontinued Medications Albuterol/Ipratropium (Duoneb 3.0-0.5 Mg/3 Ml) Confirm Administered Dose 3 ml .ROUTE .STK-MED ONE Stop: 10/03/16 12:16 Last Admin: 10/03/16 12:20 Dose: 3 ml Levofloxacin/Dextrose 750 mg/ (Premix) 150 mls @ 100 mls/hr IV ONETIME ONE Stop: 10/03/16 16:46 Last Admin: 10/03/16 16:10 Dose: 100 mls/hr Levofloxacin/Dextrose 500 mg/ (Premix) 100 mls @ 100 mls/hr IV Q48H [facility] Methylprednisolone Sodium Succinate (Solu-Medrol) 125 mg IVPUSH Q6H [facility] Last Admin: 10/05/16 10:20 Dose: 125 mg Sodium Bicarbonate (Sodium Bicarbonate 8.4%) 100 meq IVPUSH ONETIME ONE Stop: 10/04/16 12:20 Last Admin: 10/04/16 12:54 Dose: 100 meq Sodium Bicarbonate (Sodium Bicarbonate 8.4%) 100 meq IVPUSH ONETIME ONE Stop: 10/05/16 10:44 Last Admin: 10/05/16 11:20 Dose: 100 meq - Exam General: alert, oriented HEENT: Pupils equal, Pupils reactive, EOMI, Mucous membr. moist/pink Lungs: Decreased breath sounds (Improved from admission.), Rhonchi ( Intermittent bilateral lower lobes, RLL > LLL.). No: Crackles, Rales Cardiovascular: Regular Rate, Regular Rhythm Abdomen: bowel sounds present, soft, no tenderness, no distension Extremities: no edema, normal pulses, no tenderness/swelling, no clubbing, no cyanosis Skin: warm, dry, intact Neurological: no new focal deficit Psy/Mental Status: alert, normal affect, normal mood - Problem List & Annotations (1) Normocytic anemia SNOMED Code(s): 904825561 Code(s): D64.9 - ANEMIA, UNSPECIFIED Status: Acute Current Visit: Yes Annotation/Comment:: Worsened from admission and yesterday. Low enough that will transfuse 2 units of PRBC. Will check stool occult blood. (2) Lactic acidosis SNOMED Code(s): 60638315 Code(s): E87.2 - ACIDOSIS Status: Acute Priority: High Current Visit: Yes Annotation/Comment:: Mild metabolic acidosis. ABG shows low pCO2 and low bicarbonate. Lactic acid and uric acid normal. Will check ketone level, suspect likely ketoacidosis from starvation. Will give IV sodium bicarbonate and recheck ABG in AM. (3) Malnutrition SNOMED Code(s): 0852593 Code(s): E46 - UNSPECIFIED PROTEIN-CALORIE MALNUTRITION Status: Acute Priority: High Current Visit: Yes Annotation/Comment:: More than 30 pound weight loss in little over month. Improved appetite and food and fluid intake. Continue Boost shakes for supplementation. (4) RLL pneumonia SNOMED Code(s): 637485227 Code(s): J18.1 - LOBAR PNEUMONIA, UNSPECIFIED ORGANISM Status: Acute Current Visit: Yes Qualifiers: Pneumonia type: due to unspecified organism Qualified Code(s): J18.1 - Lobar pneumonia, unspecified organism Annotation/Comment:: Continue current antibiotic regimen. Wean Solumedrol to 125 mg IV every 12 hours. Continue scheduled nebulizers. (5) Chronic renal failure, stage 4 (severe) SNOMED Code(s): 23081930, 933999593 Code(s): N18.4 - CHRONIC KIDNEY DISEASE, STAGE 4 (SEVERE) Status: Acute Priority: Medium Current Visit: Yes Annotation/Comment:: Chronic and stable. (6) Leukocytosis SNOMED Code(s): 175623126, 347174019 Code(s): D72.829 - ELEVATED WHITE BLOOD CELL COUNT, UNSPECIFIED Status: Acute Priority: High Current Visit: Yes Qualifiers: Leukocytosis type: bandemia Qualified Code(s): D72.825 - Bandemia Annotation/Comment:: Improved slightly from yesterday, will continue to follow. Followup culture results and adjust antibiotics accordingly. - Problem List Review Problem List Initiated/Reviewed/Updated: Yes - My Orders Last 24 Hours: My Active Orders 10/04/16 12:29 Pharmacy Consult [Consult to Pharmacy] [CONS] Routine 10/04/16 12:59 Consult to Case Management [CONS] Routine Consult to Occupational Therapy [OT Evaluation and Treatment] [CONS] Routine Consult to Physical Therapy [PT Evaluation and Treatment] [CONS] Routine 10/04/16 13:00 Piperacillin/Tazobactam [Zosyn] 2.25 gm Sodium Chloride 0.9% [Normal Saline] 100 ml IV Q6H Sodium Chloride 0.9% [Saline Flush] 10 ml FLUSH ASDIRECTED PRN 10/04/16 14:00 Vancomycin 0.65 gm Sodium Chloride 0.9% [Normal Saline] 250 ml IV Q24H 10/04/16 15:17 Communication Order [RC] 08,12,16,18,21 10/04/16 16:05 Communication Order [RC] STAT 10/04/16 16:06 Communication Order [RC] 08,20 10/05/16 06:45 RED BLOOD CELLS LP [BBK] Routine TYPE AND SCREEN [BBK] Routine 10/05/16 10:53 Transfuse PRBC [Transfuse Red Blood Cells] [COMM] Routine 10/05/16 12:29 KETONES,BLOOD [CHEM] Routine 10/05/16 12:30 methylPREDNISolone Sod Succ [Solu-MEDROL] 125 mg IVPUSH Q12H 10/05/16 13:30 Furosemide [Lasix] 20 mg IVPUSH ONETIME ONE 10/05/16 15:30 Furosemide [Lasix] 20 mg IVPUSH ONETIME ONE 10/06/16 07:00 CBC WITH AUTO DIFF [HEME] DAILY CMP [COMPREHENSIVE METABOLIC PN,CMP] [CHEM] DAILY CRP [C-REACTIVE PROTEIN] [CHEM] DAILY - Plan Plan:: 1. Treatment as outlined above. 2. Will discuss with daughter and patient consideration for CT chest/abdomen/ pelvis to look for occult malignancy given progressive weight loss/cachexia and weakness. 3. PT/OT consult to assess and treat and discharge recommendations. Believe patient will require longterm placement given progressive weight loss/ cachexia and weakness. 4. SW consult for disposition planning and likely longterm placement also to investigate possibility of neglect.
[2016-10-05] MEDS ORDERED: Albuterol 0.083% 2.5 MG/3 ML Neb Soln NEB PRN (12:46)
[2016-10-05] MEDS: Albuterol/Ipratropium 3.0-0.5 MG/3 ML Neb Soln NEB SCH ×3 (12:57→19:37)
[2016-10-05] MEDS ORDERED: Furosemide 20 MG/2 ML VIAL IVPUSH ONE ×2 (13:30→15:30)
[2016-10-05] MEDS ORDERED: Levofloxacin/Dextrose 5%-Water 500 MG in Premix Bag 1 BAG IV SCH (15:00)
[2016-10-05] MEDS: VANCOMYCIN IV SCH (16:33)
[2016-10-05] MEDS: SODIUM CHLORIDE 0.9% IV SCH (16:33)
[2016-10-05] MEDS: Simvastatin 10 MG Tab PO SCH (19:37)
[2016-10-06] MEDS: Albuterol/Ipratropium 3.0-0.5 MG/3 ML Neb Soln NEB SCH ×4 (00:07→11:31)
[2016-10-06] MEDS: Piperacillin/Tazobactam 2.25 GM in Sodium Chloride 0.9% 100 ML IV SCH ×4 (00:08→19:25)
[2016-10-06] MEDS: Dutasteride 0.5 MG Cap PO SCH (07:57)
[2016-10-06] MEDS: Ferrous Sulfate 325 MG Tab PO SCH ×2 (07:57→17:36)
[2016-10-06] MEDS: Cyanocobalamin (Vitamin B12) 1,000 MCG Tab PO SCH (07:57)
[2016-10-06] MEDS: Tamsulosin 0.4 MG Cap.ER PO SCH (07:57)
[2016-10-06] MEDS: Metoprolol Succinate 25 MG Tab.ER PO SCH (07:57)
[2016-10-06] MEDS: Magnesium Oxide 400 MG Tab PO SCH ×2 (07:57→17:37)
[2016-10-06] MEDS: Aspirin 81 MG Tab.EC PO SCH (07:57)
[2016-10-06] MEDS: Sodium Chloride 0.9% 10 ML Syringe FLUSH PRN ×3 (07:58→12:34)
[2016-10-06] MEDS: methylPREDNISolone Sodium Succinate 125 MG/2 ML SDV IVPUSH SCH (08:01)
[2016-10-06 09:46] LABS: BASE EXCESS ARTERIAL -7 mmol/L (-2-3); O2 DELIVERY DEVICE NASAL CANNULA; O2 SATURATION ARTERIAL 97 % (95-98); PCO2 ARTERIAL 30 mmHG (35-45); PO2 ARTERIAL 94 mmHG (80-105)
[2016-10-06] MEDS: Potassium Chloride 10 MEQ in Premix Bag 1 BAG IV SCH ×6 (12:33→18:24)
[2016-10-06] MEDS: FLUoxetine 10 MG Cap PO SCH (12:33)
[2016-10-06] MEDS: Sodium Chloride 0.9% 1,000 ML IV SCH (12:34)
--- NOTE | 2016-10-06 12:38 | PCM.PN ---
- General Info Date of Service: 10/06/16 Admission Dx/Problem (Free Text): RLL pneumonia. Hypoxia. Normocytic anemia. Chronic Renal Failure, Stage 4. Subjective Update: Patient reports he feels "much better" but still with mild shortness of breath. He denies chest pain and reports coughing has improved significantly. His appetite has improved significantly as well. Nursing reports he is eating better and drinking at least 2 Boost shakes daily. He is on room air and saturating 100%. - Review of Systems General: Reports: Weakness (Mild, improved.), Fatigue (Mild, improved.) HEENT: Reports: no symptoms Pulmonary: Reports: shortness of breath (Mild, improved.), cough (Mild, improved.). Denies: pleuritic chest pain, sputum, hemoptysis, wheezing Cardiovascular: Denies: Chest Pain, Palpitations, Dyspnea on Exertion, Orthopnea Gastrointestinal: Reports: No symptoms Musculoskeletal: Reports: no symptoms Skin: Reports: no symptoms Neurological: Reports: No Symptoms Psychiatric: Reports: no symptoms - Patient Data Vitals - most recent: Last Vital Signs Temp 36.0 C 10/06/16 08:00 Pulse 58 L 10/06/16 08:00 Resp 16 10/06/16 08:00 BP 112/62 10/06/16 08:00 Pulse Ox 97 10/06/16 08:00 Weight - most recent: 46.7 kg I&O - last 24 hours: Intake & Output 10/05/16 10/06/16 10/06/16 22:59 06:59 14:59 Intake Total 561 100 Output Total 325 Balance 236 100 Lab Results last 24 hrs: Laboratory Results - last 24 hr 10/05/16 10/05/16 10/06/16 Range/Units 06:45 11:00 07:00 WBC 15.9 H (4.0-10.2) K/uL RBC 3.57 L (4.33-5.41) M/uL Hgb 10.9 L D (13.1-16.8) g/dL Hct 31.8 L (39.0-49.0) % MCV 89.1 D (84.0-98.0) fL MCH 30.5 (28.2-33.3) pg MCHC 34.3 (31.7-36.0) g/dL RDW 14.9 H (11.2-14.1) % Plt Count 206 (150-350) K/uL Neut % (Auto) 95.6 H (45.0-80.0) % Lymph % (Auto) 1.6 L (10.0-50.0) % [place] % (Auto) 2.8 (2.0-14.0) % Eos % (Auto) 0.0 (0.0-5.0) % Baso % (Auto) 0.0 (0.0-2.0) % Neut # (Auto) 15.22 H (1.40-7.00) K/uL Lymph # (Auto) 0.26 L (0.50-3.50) K/uL [place] # (Auto) 0.44 (0.00-1.00) K/uL Eos # (Auto) 0.00 (0.00-0.50) K/uL Baso # (Auto) 0.00 (0.00-0.20) K/uL PT (9.8-11.7) SEC INR ABG pH (7.35-7.45) ABG pCO2 (35-45) mmHG ABG pO2 (80-105) mmHG ABG HCO3 (22-26) mmol/L ABG Total CO2 (23-27) mmol/L ABG O2 Saturation (95-98) % ABG Base Excess (-2-3) mmol/L O2 Delivery Device Blood Gas Comments Sodium (136-145) mmol/L Potassium (3.5-5.1) mmol/L Chloride (98-107) mmol/L Carbon Dioxide (21.0-32.0) mmol/L BUN (7-18) mg/dL Creatinine (0.51-1.17) mg/dL Est Cr Clr Drug Dosing mL/min Estimated GFR (MDRD) mL/min Glucose (74-106) mg/dL Calcium (8.5-10.1) mg/dL Total Bilirubin (0.2-1.0) mg/dL AST (15-37) U/L ALT (12-78) U/L Alkaline Phosphatase (46-116) IU/L C-Reactive Protein (<=0.9) mg/dL Total Protein (6.4-8.2) g/dL Albumin (3.4-5.0) g/dL Ketones Negative Blood Type O NEGATIVE Gel Antibody Screen Negative Crossmatch See Detail 10/06/16 10/06/16 10/06/16 Range/Units 07:00 07:00 09:40 WBC (4.0-10.2) K/uL RBC (4.33-5.41) M/uL Hgb (13.1-16.8) g/dL Hct (39.0-49.0) % MCV (84.0-98.0) fL MCH (28.2-33.3) pg MCHC (31.7-36.0) g/dL RDW (11.2-14.1) % Plt Count (150-350) K/uL Neut % (Auto) (45.0-80.0) % Lymph % (Auto) (10.0-50.0) % [place] % (Auto) (2.0-14.0) % Eos % (Auto) (0.0-5.0) % Baso % (Auto) (0.0-2.0) % Neut # (Auto) (1.40-7.00) K/uL Lymph # (Auto) (0.50-3.50) K/uL [place] # (Auto) (0.00-1.00) K/uL Eos # (Auto) (0.00-0.50) K/uL Baso # (Auto) (0.00-0.20) K/uL PT 15.9 H (9.8-11.7) SEC INR 1.5 ABG pH 7.39 (7.35-7.45) ABG pCO2 30 L (35-45) mmHG ABG pO2 94 (80-105) mmHG ABG HCO3 18.0 L (22-26) mmol/L ABG Total CO2 19 L (23-27) mmol/L ABG O2 Saturation 97 (95-98) % ABG Base Excess -7 L (-2-3) mmol/L O2 Delivery Device Nasal cannula Blood Gas Comments Room air Sodium 144 (136-145) mmol/L Potassium 2.7 L* (3.5-5.1) mmol/L Chloride 108 H (98-107) mmol/L Carbon Dioxide 22.3 (21.0-32.0) mmol/L BUN 75 H (7-18) mg/dL Creatinine 2.49 H (0.51-1.17) mg/dL Est Cr Clr Drug Dosing 13.55 mL/min Estimated GFR (MDRD) 25 mL/min Glucose 178 H (74-106) mg/dL Calcium 6.4 L* (8.5-10.1) mg/dL Total Bilirubin 0.5 (0.2-1.0) mg/dL AST 38 H (15-37) U/L ALT 64 (12-78) U/L Alkaline Phosphatase 183 H (46-116) IU/L C-Reactive Protein 7.1 H (<=0.9) mg/dL Total Protein 5.6 L (6.4-8.2) g/dL Albumin 1.7 L (3.4-5.0) g/dL Ketones Blood Type Gel Antibody Screen Crossmatch Manjinder Results last 24 hrs: Microbiology 10/05/16 10:40 Stool Occult Blood (MANJINDER) - Final Stool / Feces Med Orders - Current: Current Medications Acetaminophen (Tylenol) 650 mg PO Q6H PRN PRN Reason: Fever Albuterol (Proventil Neb Soln) 2.5 mg NEB Q6HRRT PRN PRN Reason: Shortness of Breath Albuterol/Ipratropium (Duoneb 3.0-0.5 Mg/3 Ml) 3 ml NEB Q4HRRT [facility] Last Admin: 10/06/16 11:31 Dose: 3 ml Aspirin (Halfprin) 81 mg PO DAILY [facility] Last Admin: 10/06/16 07:57 Dose: 81 mg Calcium Gluconate (Calcium Gluconate) 1 gm IVPUSH ONETIME ONE Stop: 10/06/16 20:01 Cyanocobalamin (Vitamin B12) 1,000 mcg PO DAILY [facility] Last Admin: 10/06/16 07:57 Dose: 1,000 mcg Dutasteride (Avodart) 0.5 mg PO QAM [facility] Last Admin: 10/06/16 07:57 Dose: 0.5 mg Ferrous Sulfate (Ferrous Sulfate) 325 mg PO BID [facility] Last Admin: 10/06/16 07:57 Dose: 325 mg Fluoxetine HCl (Prozac) 10 mg PO DAILY [facility] Piperacillin Sod/Tazobactam (Sod 2.25 gm/ Sodium Chloride) 100 mls @ 200 mls/ hr IV Q6H [facility] Last Admin: 10/06/16 12:00 Dose: 200 mls/hr Vancomycin HCl 0.65 gm/ Sodium (Chloride) 250 mls @ 215 mls/hr IV Q24H [facility] Last Admin: 10/05/16 16:33 Dose: 215 mls/hr Potassium Chloride 10 meq/ (Premix) 50 mls @ 50 mls/hr IV Q1H JESSY Stop: 10/06/16 17:34 Sodium Chloride (Normal Saline) 1,000 mls @ 75 mls/hr IV ASDIRECTED JESSY Magnesium Oxide (Magnesium Oxide) 400 mg PO BID [facility] Last Admin: 10/06/16 07:57 Dose: 400 mg Methylprednisolone Sodium Succinate (Solu-Medrol) 125 mg IVPUSH Q12H [facility] Last Admin: 10/06/16 08:01 Dose: 125 mg Metoprolol Succinate (Toprol Xl) 25 mg PO DAILY [facility] Last Admin: 10/06/16 07:57 Dose: 25 mg Simvastatin (Zocor) 10 mg PO BEDTIME [facility] Last Admin: 10/05/16 19:37 Dose: 10 mg Sodium Chloride (Saline Flush) 10 ml FLUSH ASDIRECTED PRN PRN Reason: Keep Vein Open Last Admin: 10/06/16 12:00 Dose: 10 ml Tamsulosin HCl (Flomax) 0.4 mg PO DAILY [facility] Last Admin: 10/06/16 07:57 Dose: 0.4 mg Vancomycin HCl (Pharmacy To Dose - Vancomycin) 1 dose .XX ASDIRECTED [facility] Discontinued Medications Albuterol (Proventil Neb Soln) 2.5 mg NEB Q4HRRT [facility] Last Admin: 10/05/16 11:34 Dose: 2.5 mg Albuterol (Proventil Neb Soln) 2.5 mg NEB Q2H PRN PRN Reason: Wheezing Albuterol/Ipratropium (Duoneb 3.0-0.5 Mg/3 Ml) Confirm Administered Dose 3 ml .ROUTE .STK-MED ONE Stop: 10/03/16 12:16 Last Admin: 10/03/16 12:20 Dose: 3 ml Furosemide (Lasix) 20 mg IVPUSH ONETIME ONE Stop: 10/05/16 13:31 Last Admin: 10/05/16 17:17 Dose: 20 mg Furosemide (Lasix) 20 mg IVPUSH ONETIME ONE Stop: 10/05/16 15:31 Last Admin: 10/05/16 21:09 Dose: 20 mg Sodium Chloride (Normal Saline) 1,000 mls @ 50 mls/hr IV ASDIRECTED JESSY Last Admin: 10/04/16 21:29 Dose: 50 mls/hr Levofloxacin/Dextrose 750 mg/ (Premix) 150 mls @ 100 mls/hr IV ONETIME ONE Stop: 10/03/16 16:46 Last Admin: 10/03/16 16:10 Dose: 100 mls/hr Levofloxacin/Dextrose 500 mg/ (Premix) 100 mls @ 100 mls/hr IV Q48H [facility]ESS[facility] Methylprednisolone Sodium Succinate (Solu-Medrol) 125 mg IVPUSH Q6H [facility] Last Admin: 10/05/16 10:20 Dose: 125 mg Sodium Bicarbonate (Sodium Bicarbonate 8.4%) 100 meq IVPUSH ONETIME ONE Stop: 10/04/16 12:20 Last Admin: 10/04/16 12:54 Dose: 100 meq Sodium Bicarbonate (Sodium Bicarbonate 8.4%) 100 meq IVPUSH ONETIME ONE Stop: 10/05/16 10:44 Last Admin: 10/05/16 11:20 Dose: 100 meq - Exam General: alert, oriented HEENT: Pupils equal, Pupils reactive, EOMI, Mucous membr. moist/pink Lungs: Clear to auscultation, Normal respiratory effort Cardiovascular: Regular Rate, Regular Rhythm, No Murmurs. No: Gallops, Rubs Abdomen: bowel sounds present, soft, no tenderness, no distension Back Exam: normal inspection, full range of motion. No: CVA tenderness (L), CVA tenderness (R), paraspinal tenderness, vertebral tenderness Extremities: no edema, normal pulses, no tenderness/swelling, no clubbing, no cyanosis, other (Rivera sign absent in bilateral LE.) Peripheral Pulses: 2+: radial (L), radial (R), dorsalis pedis (L), dorsalis pedis (R) Skin: warm, dry, intact Neurological: no new focal deficit Psy/Mental Status: alert, normal affect, normal mood - Problem List & Annotations (1) RLL pneumonia SNOMED Code(s): 876187613 Code(s): J18.1 - LOBAR PNEUMONIA, UNSPECIFIED ORGANISM Status: Acute Current Visit: Yes Qualifiers: Pneumonia type: due to unspecified organism Qualified Code(s): J18.1 - Lobar pneumonia, unspecified organism Annotation/Comment:: Improved significantly. Continue current antibiotic regimen for total of 7 days. Wean Solumedrol to 125 mg IV daily. Change nebulizers to as needed. (2) Lactic acidosis SNOMED Code(s): 84685324 Code(s): E87.2 - ACIDOSIS Status: Acute Priority: High Current Visit: Yes Annotation/Comment:: Compensated metabolic acidosis. Lactate, Uric Acid, and Ketones normal. Will stop checking ABG's and follow clinically. (3) Normocytic anemia SNOMED Code(s): 498948957 Code(s): D64.9 - ANEMIA, UNSPECIFIED Status: Acute Current Visit: Yes Annotation/Comment:: Significantly improved following transfusion. Will recheck tomorrow and recheck coags tomorrow as well. Fecal occult blood positive. Will stop aspirin given bleed and anemia. Will repeat fecal occult blood on 10/07/16. Will have to consider colonscopy/endoscopy if persistant. (4) Malnutrition SNOMED Code(s): 8704021 Code(s): E46 - UNSPECIFIED PROTEIN-CALORIE MALNUTRITION Status: Acute Priority: High Current Visit: Yes Annotation/Comment:: Good weight gain since admission. Appetite improved and oral intake improved. Continue Boost Protein Shakes for supplementation. (5) Chronic renal failure, stage 4 (severe) SNOMED Code(s): 30287141, 130509438 Code(s): N18.4 - CHRONIC KIDNEY DISEASE, STAGE 4 (SEVERE) Status: Acute Priority: Medium Current Visit: Yes Annotation/Comment:: Chronic and stable. (6) Leukocytosis SNOMED Code(s): 067361381, 290155121 Code(s): D72.829 - ELEVATED WHITE BLOOD CELL COUNT, UNSPECIFIED Status: Acute Priority: High Current Visit: Yes Qualifiers: Leukocytosis type: bandemia Qualified Code(s): D72.825 - Bandemia Annotation/Comment:: Improved, will continue to follow. Followup culture results and adjust antibiotics accordingly. - Problem List Review Problem List Initiated/Reviewed/Updated: Yes - My Orders Last 24 Hours: My Active Orders 10/05/16 12:46 RT Aerosol Therapy [RC] Q4HR Albuterol [Proventil Neb Soln] 2.5 mg NEB Q6HRRT PRN 10/05/16 13:00 Albuterol/Ipratropium [DuoNeb 3.0-0.5 MG/3 ML] 3 ml NEB Q4HRRT 10/05/16 14:30 Chest wo Cont [CT] Routine 10/05/16 14:31 Abdomen Pelvis wo Cont [CT] Stat 10/05/16 21:00 methylPREDNISolone Sod Succ [Solu-MEDROL] 125 mg IVPUSH Q12H 10/06/16 11:35 Potassium Chloride [KCl 10 MEQ in Water 50 ML] 10 meq Premix Bag 1 bag IV Q1H 10/06/16 11:45 FLUoxetine [PROzac] 10 mg PO DAILY Sodium Chloride 0.9% [Normal Saline] 1,000 ml IV ASDIRECTED 10/06/16 20:00 Calcium Gluconate 1 gm IVPUSH ONETIME ONE 10/07/16 07:00 CBC WITH AUTO DIFF [HEME] Stat COMPREHENSIVE METABOLIC PN,CMP [CHEM] Routine INR,PT,PROTHROMBIN TIME [COAG] Routine MAGNESIUM [CHEM] Routine PHOSPHORUS [CHEM] Routine PTT,PARTIAL THROMBOPLSTIN TIME [COAG] Routine - Plan Plan:: 1. Treatment as outlined above. 2. Followup reports for CT of chest/abdomen/pelvis from 10/05/16. 3. PT/OT consult to assess and treat and discharge recommendations. Believe patient will require mcc placement given progressive weight loss/ cachexia and weakness. 4. SW consult for disposition planning and likely mcc placement, reportedly SW satisfied no evidence of elder neglect.
[2016-10-06] MEDS ORDERED: Albuterol/Ipratropium 3.0-0.5 MG/3 ML Neb Soln NEB PRN (12:43)
[2016-10-06] MEDS: VANCOMYCIN IV SCH (13:09)
[2016-10-06] MEDS: SODIUM CHLORIDE 0.9% IV SCH (13:09)
[2016-10-06] MEDS: Simvastatin 10 MG Tab PO SCH (19:29)
[2016-10-06] MEDS ORDERED: Calcium Gluconate 10% 1 GM/10 ML SDV IVPUSH ONE (20:00)
[2016-10-06] MEDS ORDERED: Calcium Gluconate 1 GM in Sodium Chloride 0.9% 100 ML IV ONE (20:00)
[2016-10-06] MEDS ORDERED: Bacitracin/Neomycin/Polymyxin B Oint 0.9 GM U/D Packet TOP PRN (22:14)
[2016-10-07] MEDS: Bacitracin/Neomycin/Polymyxin B Oint 0.9 GM U/D Packet TOP SCH ×2 (01:43→07:18)
[2016-10-07] MEDS: Piperacillin/Tazobactam 2.25 GM in Sodium Chloride 0.9% 100 ML IV SCH ×2 (01:43→06:28)
[2016-10-07] MEDS ORDERED: Saliva Substitute Oral Spray 120 ML Bottle MUCMEM PRN (01:48)
[2016-10-07] MEDS: Sodium Chloride 0.9% 1,000 ML IV SCH (03:54)
[2016-10-07] MEDS: Metoprolol Succinate 25 MG Tab.ER PO SCH (07:15)
[2016-10-07] MEDS: Cyanocobalamin (Vitamin B12) 1,000 MCG Tab PO SCH (07:16)
[2016-10-07] MEDS: Tamsulosin 0.4 MG Cap.ER PO SCH (07:17)
[2016-10-07] MEDS: FLUoxetine 10 MG Cap PO SCH (07:17)
[2016-10-07] MEDS: Dutasteride 0.5 MG Cap PO SCH (07:17)
[2016-10-07] MEDS: Ferrous Sulfate 325 MG Tab PO SCH (07:17)
[2016-10-07] MEDS: Magnesium Oxide 400 MG Tab PO SCH (07:17)
[2016-10-07] MEDS ORDERED: methylPREDNISolone Sodium Succinate 125 MG/2 ML SDV IVPUSH SCH (08:00)
[2016-10-07] MEDS ORDERED: Calcium Gluconate 2 GM in Sodium Chloride 0.9% 100 ML IV ONE (12:18)
[2016-10-07] MEDS ORDERED: Calcium Carbonate 750 MG Tab.Chew PO SCH (12:30)
[2016-10-07 12:40] VITALS: BP 119/55
--- NOTE | 2016-10-07 13:12 | PCM.DCSUM1 ---
Discharge Summary - Hospital Course Free Text/Narrative:: Admitted 10/03/2016 with RLL pneumonia with hypoxia, anemia, malnutrition with cachexia, and stable chronic renal failure. He was also notably acidotic on admission ABG's with lactic acidosis. He was started on IV Levaquin, IV Solumedrol, and oxygen. When acidosis was discovered antibiotic regimen was changed to Zosyn and Vancomycin and he was given IV sodium bicarbonate. Repeat ABG's in subsequent days showed persistent acidosis but lactic acidosis had resolved, uric acid level was normal, and ketones were normal. He was given repeat dose of sodium bicarbonate. He has had gradual and progressive improvement since admission with 100% oxygen saturation on room air and appetite has improved with several pound weight gain since admission. Will transition to swing bed as he still requires IV antibiotics and is still weak and requires further PT/OT for strengthening and conditioning. Feel he will require placement in SNF on discharge. Will followup report of CT chest/abdomen/ pelvis from 10/05/16 as still have not received at this time. - Discharge Data Discharge Date: 10/07/16 Discharge Disposition: DC/Tfer W/I Hosp To Swing Condition: Good - Discharge Diagnosis/Problem(s) (1) RLL pneumonia SNOMED Code(s): 319640909 ICD Code: J18.1 - LOBAR PNEUMONIA, UNSPECIFIED ORGANISM Status: Acute Current Visit: Yes Problem Details: Improved significantly. Continue current antibiotic regimen and will D/C on 10/11/2016. Wean Solumedrol from 125 mg IV daily. Begin Medrol dose pack on 10/09/16. Qualifiers: Pneumonia type: due to unspecified organism Qualified Code(s): J18.1 - Lobar pneumonia, unspecified organism (2) Hypocalcemia SNOMED Code(s): 4486902 ICD Code: E83.51 - HYPOCALCEMIA Status: Acute Priority: High Current Visit: Yes Problem Details: Will replete with IV calcium gluconate 2 grams today and start daily supplementation with calcium carbonate as it has been refractory to IV repeletion. (3) Hypokalemia SNOMED Code(s): 04424927 ICD Code: E87.6 - HYPOKALEMIA Status: Acute Priority: High Current Visit: Yes Problem Details: Will start KCl 20 mEq ER PO BID with meals. (4) Normocytic anemia SNOMED Code(s): 229774065 ICD Code: D64.9 - ANEMIA, UNSPECIFIED Status: Acute Current Visit: Yes Problem Details: Significantly improved following transfusion. Stable. Stopped anticoagulation and aspirin as fecal occult blood present in stool. (5) Malnutrition SNOMED Code(s): 8032976 ICD Code: E46 - UNSPECIFIED PROTEIN-CALORIE MALNUTRITION Status: Acute Priority: High Current Visit: Yes Problem Details: Good weight gain since admission. Appetite improved and oral intake improved. Continue Boost Protein Shakes for supplementation. (6) Chronic renal failure, stage 4 (severe) SNOMED Code(s): 97967365, 140403807 ICD Code: N18.4 - CHRONIC KIDNEY DISEASE, STAGE 4 (SEVERE) Status: Acute Priority: Medium Current Visit: Yes Problem Details: Chronic and stable. (7) Leukocytosis SNOMED Code(s): 714980895, 539742040 ICD Code: D72.829 - ELEVATED WHITE BLOOD CELL COUNT, UNSPECIFIED Status: Acute Priority: Medium Current Visit: Yes Problem Details: Increased iatrogenically secondary to steroids. Improved clinically. Qualifiers: Leukocytosis type: bandemia Qualified Code(s): D72.825 - Bandemia - Patient Summary/Data Consults: Consultations 10/04/16 12:29 Pharmacy Consult [Consult to Pharmacy] [CONS] Routine 10/04/16 12:59 Consult to Case Management [CONS] Routine Consult to Occupational Therapy [OT Evaluation and Treatment] [CONS] Routine Consult to Physical Therapy [PT Evaluation and Treatment] [CONS] Routine - Discharge Plan Home Medications: Home Meds Albuterol/Ipratropium [DuoNeb 3.0-0.5 MG/3 ML] 3 ml INH TID 09/01/15 [History] Dutasteride [Avodart] 0.5 mg PO QAM 09/01/15 [History] Bumetanide 0.5 mg PO DAILY 09/19/15 [History] Nitroglycerin [Nitrostat] 0.4 mg SL ASDIRECTED PRN 09/19/15 [History] Sennosides/Docusate Sodium [Senna-Docusate Sodium] 1 tab PO BID 09/19/15 [ History] Simvastatin [Zocor] 10 mg PO BEDTIME 09/19/15 [History] Tamsulosin [Flomax] 0.4 mg PO PCBREAKFAST 09/19/15 [History] Acetaminophen 650 mg PO Q6H PRN 10/03/16 [History] Aspirin [Adult Low Dose Aspirin EC] 81 mg PO DAILY 10/03/16 [History] Calcium Carbonate/Vitamin D3 [Calcium 500 + Vit D 200 Caplet] 2 each PO BID [History] Cyanocobalamin (Vitamin B-12) [B-12] 1,000 mcg PO DAILY 10/03/16 [History] Ferrous Sulfate [Iron] 325 mg PO BID 10/03/16 [History] Magnesium Oxide 400 mg PO BID 10/03/16 [History] Metoprolol Succinate [Toprol XL] 25 mg PO DAILY 10/03/16 [History] Ubidecarenone [Coenzyme Q-10] 100 mg PO DAILY 10/03/16 [History] FLUoxetine [PROzac] 10 mg PO DAILY 10/04/16 [History] Forms: ED Department Discharge Referrals: Silver-Dayana Babcock MD [Primary Care Provider] - - General Info Date of Service: 10/07/16 Admission Dx/Problem (Free Text: RLL pneumonia. Hypoxia. Normocytic anemia. Chronic Renal Failure, Stage 4. Subjective Update: See above. - Review of Systems General: Reports: Weakness (Improved since admission.), Appetite (Improved since admission.). Denies: Fever HEENT: Reports: no symptoms Pulmonary: Reports: cough (Rare, improved since admission.), sputum (Improved since admission.). Denies: shortness of breath, wheezing Cardiovascular: Reports: No Symptoms Gastrointestinal: Reports: No symptoms Genitourinary: Reports: no symptoms Musculoskeletal: Reports: no symptoms Skin: Reports: no symptoms Neurological: Reports: No Symptoms Psychiatric: Reports: no symptoms - Patient Data Vitals - Most Recent: Last Vital Signs Temp 36.4 C 10/07/16 12:00 Pulse 58 L 10/07/16 12:00 Resp 16 10/07/16 12:00 BP 119/55 L 10/07/16 12:00 Pulse Ox 98 10/07/16 12:00 Weight - Most Recent: 47.264 kg I&O - Last 24 hours: Intake & Output 10/06/16 10/07/16 10/07/16 22:59 06:59 14:59 Intake Total 1263 1140 300 Balance 1263 1140 300 Lab Results - Last 24 hrs: Laboratory Results - last 24 hr 10/07/16 10/07/16 10/07/16 Range/Units 07:20 07:20 07:20 WBC 18.0 H (4.0-10.2) K/uL RBC 3.61 L (4.33-5.41) M/uL Hgb 10.8 L (13.1-16.8) g/dL Hct 32.8 L (39.0-49.0) % MCV 90.9 (84.0-98.0) fL MCH 29.9 (28.2-33.3) pg MCHC 32.9 (31.7-36.0) g/dL RDW 15.6 H (11.2-14.1) % Plt Count 172 (150-350) K/uL Neut % (Auto) 94.5 H (45.0-80.0) % Lymph % (Auto) 2.2 L (10.0-50.0) % Ritchie % (Auto) 3.2 (2.0-14.0) % Eos % (Auto) 0.0 (0.0-5.0) % Baso % (Auto) 0.1 (0.0-2.0) % Neut # (Auto) 16.99 H (1.40-7.00) K/uL Lymph # (Auto) 0.40 L (0.50-3.50) K/uL Ritchie # (Auto) 0.58 (0.00-1.00) K/uL Eos # (Auto) 0.00 (0.00-0.50) K/uL Baso # (Auto) 0.01 (0.00-0.20) K/uL PT 15.2 H (9.8-11.7) SEC INR 1.4 APTT 32.0 H (23.5-30.0) SEC Sodium 144 (136-145) mmol/L Potassium 3.4 L (3.5-5.1) mmol/L Chloride 110 H (98-107) mmol/L Carbon Dioxide 21.9 (21.0-32.0) mmol/L BUN 67 H (7-18) mg/dL Creatinine 2.41 H (0.51-1.17) mg/dL Est Cr Clr Drug Dosing 14.16 mL/min Estimated GFR (MDRD) 26 mL/min Glucose 142 H (74-106) mg/dL Calcium 6.2 L* (8.5-10.1) mg/dL Phosphorus 3.1 (2.6-4.7) mg/dL Magnesium 1.8 (1.8-2.4) mg/dL Total Bilirubin 0.5 (0.2-1.0) mg/dL AST 54 H (15-37) U/L ALT 79 H (12-78) U/L Alkaline Phosphatase 173 H (46-116) IU/L Total Protein 5.3 L (6.4-8.2) g/dL Albumin 1.7 L (3.4-5.0) g/dL LELA Results - Last 24 hrs: Microbiology 10/07/16 09:45 Stool Occult Blood (ELLA) - Final Stool / Feces Med Orders - Current: Current Medications Acetaminophen (Tylenol) 650 mg PO Q6H PRN PRN Reason: Fever Albuterol/Ipratropium (Duoneb 3.0-0.5 Mg/3 Ml) 3 ml NEB Q4HRRT PRN PRN Reason: Wheezing Calcium Carbonate/Glycine (Tums Extra Strength) 1,500 mg PO DAILY [facility] Last Admin: 10/07/16 12:59 Dose: 1,500 mg Cyanocobalamin (Vitamin B12) 1,000 mcg PO DAILY [facility] Last Admin: 10/07/16 07:16 Dose: 1,000 mcg Dutasteride (Avodart) 0.5 mg PO QAM [facility] Last Admin: 10/07/16 07:17 Dose: 0.5 mg Ferrous Sulfate (Ferrous Sulfate) 325 mg PO BID [facility] Last Admin: 10/07/16 07:17 Dose: 325 mg Fluoxetine HCl (Prozac) 10 mg PO DAILY [facility] Last Admin: 10/07/16 07:17 Dose: 10 mg Piperacillin Sod/Tazobactam (Sod 2.25 gm/ Sodium Chloride) 100 mls @ 200 mls/ hr IV Q6H [facility] Stop: 10/11/16 07:00 Last Admin: 10/07/16 06:28 Dose: 200 mls/hr Vancomycin HCl 0.65 gm/ Sodium (Chloride) 250 mls @ 215 mls/hr IV Q24H [facility] Stop: 10/11/16 07:00 Last Admin: 10/06/16 13:09 Dose: 215 mls/hr Sodium Chloride (Normal Saline) 1,000 mls @ 75 mls/hr IV ASDIRECTED [facility] Last Admin: 10/07/16 03:54 Dose: 75 mls/hr Calcium Gluconate 2 gm/ Sodium (Chloride) 120 mls @ 100 mls/hr IV ONETIME ONE Stop: 10/07/16 13:29 Last Admin: 10/07/16 12:55 Dose: 100 mls/hr Magnesium Oxide (Magnesium Oxide) 400 mg PO BID [facility] Last Admin: 10/07/16 07:17 Dose: 400 mg Methylprednisolone Sodium Succinate (Solu-Medrol) 125 mg IVPUSH DAILY [facility] Stop: 10/08/16 08:01 Last Admin: 10/07/16 07:18 Dose: 125 mg Metoprolol Succinate (Toprol Xl) 25 mg PO DAILY [facility] Last Admin: 10/07/16 07:15 Dose: 25 mg Neomycin/Polymyxin/Bacitracin (Triple Antibiotic Oint) 1 each TOP BID [facility] Last Admin: 10/07/16 07:18 Dose: 1 each Neomycin/Polymyxin/Bacitracin (Triple Antibiotic Oint) 1 each TOP BID PRN PRN Reason: Dryness Non-Formulary Medication (Nf Drug) 1 each PO DAILY [facility] Potassium Chloride (Klor-Con 10) 20 meq PO BIDMEALS [facility] Saliva Substitute (Rito-Stir Oral [place]) 1 ml MUCMEM ASDIRECTED PRN PRN Reason: Dryness Last Admin: 10/07/16 02:15 Dose: 1 spray Simvastatin (Zocor) 10 mg PO BEDTIME [facility] Last Admin: 10/06/16 19:29 Dose: 10 mg Sodium Chloride (Saline Flush) 10 ml FLUSH ASDIRECTED PRN PRN Reason: Keep Vein Open Last Admin: 10/06/16 12:34 Dose: 10 ml Tamsulosin HCl (Flomax) 0.4 mg PO DAILY [facility] Last Admin: 10/07/16 07:17 Dose: 0.4 mg Vancomycin HCl (Pharmacy To Dose - Vancomycin) 1 dose .XX ASDIRECTED [facility] Discontinued Medications Albuterol (Proventil Neb Soln) 2.5 mg NEB Q4HRRT [facility] Last Admin: 10/05/16 11:34 Dose: 2.5 mg Albuterol (Proventil Neb Soln) 2.5 mg NEB Q2H PRN PRN Reason: Wheezing Albuterol (Proventil Neb Soln) 2.5 mg NEB Q6HRRT PRN PRN Reason: Shortness of Breath Albuterol/Ipratropium (Duoneb 3.0-0.5 Mg/3 Ml) Confirm Administered Dose 3 ml .ROUTE .STK-MED ONE Stop: 10/03/16 12:16 Last Admin: 10/03/16 12:20 Dose: 3 ml Albuterol/Ipratropium (Duoneb 3.0-0.5 Mg/3 Ml) 3 ml NEB Q4HRRT [facility] Last Admin: 10/06/16 11:31 Dose: 3 ml Aspirin (Halfprin) 81 mg PO DAILY [facility] Last Admin: 10/06/16 07:57 Dose: 81 mg Calcium Gluconate (Calcium Gluconate) 1 gm IVPUSH ONETIME ONE Stop: 10/06/16 20:01 Furosemide (Lasix) 20 mg IVPUSH ONETIME ONE Stop: 10/05/16 13:31 Last Admin: 10/05/16 17:17 Dose: 20 mg Furosemide (Lasix) 20 mg IVPUSH ONETIME ONE Stop: 10/05/16 15:31 Last Admin: 10/05/16 21:09 Dose: 20 mg Sodium Chloride (Normal Saline) 1,000 mls @ 50 mls/hr IV ASDIRECTED [facility] Last Admin: 10/04/16 21:29 Dose: 50 mls/hr Levofloxacin/Dextrose 750 mg/ (Premix) 150 mls @ 100 mls/hr IV ONETIME ONE Stop: 10/03/16 16:46 Last Admin: 10/03/16 16:10 Dose: 100 mls/hr Levofloxacin/Dextrose 500 mg/ (Premix) 100 mls @ 100 mls/hr IV Q48H [facility] Potassium Chloride 10 meq/ (Premix) 50 mls @ 50 mls/hr IV Q1H [facility] Stop: 10/06/16 17:34 Last Admin: 10/06/16 18:24 Dose: 50 mls/hr Calcium Gluconate 1 gm/ Sodium (Chloride) 110 mls @ 110 mls/hr IV ONETIME ONE Stop: 10/06/16 20:59 Last Admin: 10/06/16 19:44 Dose: 110 mls/hr Methylprednisolone Sodium Succinate (Solu-Medrol) 125 mg IVPUSH Q6H [facility] Last Admin: 10/05/16 10:20 Dose: 125 mg Methylprednisolone Sodium Succinate (Solu-Medrol) 125 mg IVPUSH Q12H [facility] Last Admin: 10/06/16 08:01 Dose: 125 mg Sodium Bicarbonate (Sodium Bicarbonate 8.4%) 100 meq IVPUSH ONETIME ONE Stop: 10/04/16 12:20 Last Admin: 10/04/16 12:54 Dose: 100 meq Sodium Bicarbonate (Sodium Bicarbonate 8.4%) 100 meq IVPUSH ONETIME ONE Stop: 10/05/16 10:44 Last Admin: 10/05/16 11:20 Dose: 100 meq - Exam General: Reports: alert, oriented HEENT: Reports: Pupils equal, Pupils reactive, EOMI, Mucous membr. moist/pink Lungs: Reports: Clear to auscultation, Normal respiratory effort. Denies: Decreased breath sounds, Rales, Rhonchi, Rub, Wheezing Cardiovascular: Reports: Regular Rate, Regular Rhythm, No Murmurs. Denies: Gallops, Rubs Abdomen: Reports: bowel sounds present, soft, no tenderness, no distension. Denies: rigidity, rebound, guarding Extremities: Reports: no edema, normal pulses, no tenderness/swelling, no clubbing, no cyanosis, other (Rivera sign absent bilaterlly.) Skin: Reports: warm, dry, intact. Denies: rash Neurological: Reports: no new focal deficit Psy/Mental Status: Reports: alert, normal affect, normal mood *Q Meaningful Use (DIS) - VTE *Q VTE Criteria *Q: - Stroke *Q Stroke Criteria *Q: - AMI *Q AMI Criteria *Q:
[2016-10-07] MEDS ORDERED: Potassium Chloride 10 MEQ Tab.ER PO SCH (17:30)
== END 2016-10-07 13:51 | disposition swing bed (61) | DRG 190 ==
LOC: LL.ED 12:08 → LL.MS 13:45 → UNDOADMIN 13:45 → LL.MS 15:13 → UNDODISIN 10-07 13:51
PROVIDERS: ADMIT Surgery; ATTEND Surgery
DX: J44.0 Chronic obstructive pulmonary disease with (acute) lower respiratory infection (principal); J18.1 Lobar pneumonia, unspecified organism; E46 Unspecified protein-calorie malnutrition; N18.4 Chronic kidney disease, stage 4 (severe); E83.51 Hypocalcemia; E87.6 Hypokalemia; D64.9 Anemia, unspecified; I12.9 Hypertensive chronic kidney disease with stage 1 through stage 4 chronic kidney disease, or unspecified chronic kidney disease; D72.825 Bandemia; M19.90 Unspecified osteoarthritis, unspecified site; F17.210 Nicotine dependence, cigarettes, uncomplicated; E78.5 Hyperlipidemia, unspecified; N40.0 Benign prostatic hyperplasia without lower urinary tract symptoms
CPT/HCPCS: 36415; 36430; 71010; 71250; 74176; 80053; 80202; 82009; 82272; 82550; 82553; 82803; 83605; 83735; 84100; 84484; 84550; 85025; 85610; 85730; 86140; 86850; 86900; 86901; 86920; 86922; 87040; 93005; 94640; 94664; 97161-GP; 99285; A9270-GY; J0610; J1940; J1956; J2543; J2930; J3370; J3480; J7030; J7050; J7620-GY; P9016

== ENCOUNTER 2016-10-07 13:50 | Inpatient (IN) | payer MEDICARE, OTHER ==
--- NOTE | 2016-10-07 13:23 | PCM.HPR ---
H & P Addendum review - H & P Addendum Review Date of Original H & P: 10/07/16 (Please see Discharge Summary from 10/07/16 for Admission History and Physical including Assessment and Plan. ) Date Reviewed: 10/07/16 Time Reviewed: 13:20 Patient was examined: No Changes
[~2016-10-07 13:50] MED LIST: Acetaminophen 325 MG Tab PO PRN; Bacitracin/Neomycin/Polymyxin B Oint 0.9 GM U/D Packet TOP PRN; Saliva Substitute Oral Spray 120 ML Bottle MUCMEM PRN
[2016-10-07] MEDS: Piperacillin/Tazobactam 2.25 GM in Sodium Chloride 0.9% 100 ML IV SCH ×2 (14:37→19:11)
[2016-10-07] MEDS: VANCOMYCIN IV SCH (15:26)
[2016-10-07] MEDS: SODIUM CHLORIDE 0.9% IV SCH (15:26)
[2016-10-07] MEDS: Magnesium Oxide 400 MG Tab PO SCH (17:57)
[2016-10-07] MEDS: Potassium Chloride 10 MEQ Tab.ER PO SCH (17:57)
[2016-10-07] MEDS: Ferrous Sulfate 325 MG Tab PO SCH (17:57)
[2016-10-07] MEDS: Bacitracin/Neomycin/Polymyxin B Oint 0.9 GM U/D Packet TOP SCH (17:58)
[2016-10-07] MEDS: Simvastatin 10 MG Tab PO SCH (19:11)
[2016-10-07] MEDS: Sodium Chloride 0.9% 10 ML Syringe FLUSH PRN (19:12)
[2016-10-08] MEDS: Piperacillin/Tazobactam 2.25 GM in Sodium Chloride 0.9% 100 ML IV SCH ×4 (01:22→19:38)
[2016-10-08] MEDS: Sodium Chloride 0.9% 10 ML Syringe FLUSH PRN ×7 (01:25→19:38)
[2016-10-08] MEDS: Potassium Chloride 10 MEQ Tab.ER PO SCH ×2 (07:34→18:02)
[2016-10-08] MEDS: Magnesium Oxide 400 MG Tab PO SCH ×2 (07:35→18:02)
[2016-10-08] MEDS: Ferrous Sulfate 325 MG Tab PO SCH ×2 (07:35→18:02)
[2016-10-08] MEDS: Dutasteride 0.5 MG Cap PO SCH (07:35)
[2016-10-08] MEDS: FLUoxetine 10 MG Cap PO SCH (07:36)
[2016-10-08] MEDS: Metoprolol Succinate 25 MG Tab.ER PO SCH (07:36)
[2016-10-08] MEDS: Cyanocobalamin (Vitamin B12) 1,000 MCG Tab PO SCH (07:37)
[2016-10-08] MEDS: Calcium Carbonate 750 MG Tab.Chew PO SCH (07:37)
[2016-10-08] MEDS ORDERED: methylPREDNISolone Sodium Succinate 125 MG/2 ML SDV IVPUSH SCH (08:00)
[2016-10-08] MEDS: Bacitracin/Neomycin/Polymyxin B Oint 0.9 GM U/D Packet TOP SCH ×2 (08:08→18:02)
[2016-10-08] MEDS: Tamsulosin 0.4 MG Cap.ER PO SCH (08:08)
[2016-10-08] MEDS: VANCOMYCIN IV SCH (13:34)
[2016-10-08] MEDS: SODIUM CHLORIDE 0.9% IV SCH (13:34)
[2016-10-08] MEDS: Simvastatin 10 MG Tab PO SCH (19:38)
[2016-10-09] MEDS: Sodium Chloride 0.9% 10 ML Syringe FLUSH PRN ×3 (00:58→21:16)
[2016-10-09] MEDS: Piperacillin/Tazobactam 2.25 GM in Sodium Chloride 0.9% 100 ML IV SCH ×4 (00:58→20:31)
[2016-10-09] MEDS ORDERED: Non-Formulary Medication 1 Each PO SCH (08:00)
[2016-10-09] MEDS: Magnesium Oxide 400 MG Tab PO SCH ×2 (08:21→17:36)
[2016-10-09] MEDS: Calcium Carbonate 750 MG Tab.Chew PO SCH (08:22)
[2016-10-09] MEDS: Metoprolol Succinate 25 MG Tab.ER PO SCH (08:26)
[2016-10-09] MEDS: Dutasteride 0.5 MG Cap PO SCH (08:27)
[2016-10-09] MEDS: Ferrous Sulfate 325 MG Tab PO SCH ×2 (08:27→09:14)
[2016-10-09] MEDS: Cyanocobalamin (Vitamin B12) 1,000 MCG Tab PO SCH (08:27)
[2016-10-09] MEDS: Tamsulosin 0.4 MG Cap.ER PO SCH (08:28)
[2016-10-09] MEDS: Potassium Chloride 10 MEQ Tab.ER PO SCH (08:28)
[2016-10-09] MEDS: FLUoxetine 10 MG Cap PO SCH (08:28)
[2016-10-09] MEDS: Bacitracin/Neomycin/Polymyxin B Oint 0.9 GM U/D Packet TOP SCH ×2 (08:29→17:36)
[2016-10-09] MEDS: SODIUM CHLORIDE 0.9% IV SCH (14:22)
[2016-10-09] MEDS: VANCOMYCIN IV SCH (14:22)
[2016-10-09] MEDS: Potassium Chloride 10% 20 MEQ/15 ML Soln 15 ML UD Cup PO SCH (17:35)
[2016-10-09] MEDS: Ferrous Sulfate Liq 300 MG/5 ML Cup PO SCH (17:35)
[2016-10-09] MEDS: Simvastatin 10 MG Tab PO SCH (20:34)
[2016-10-09] MEDS ORDERED: Famotidine 20 MG/2 ML SDV IVPUSH ONE (20:40)
[2016-10-09] MEDS: Pantoprazole 40 MG Vial IVPUSH SCH (21:14)
[2016-10-09] MEDS: Albuterol/Ipratropium 3.0-0.5 MG/3 ML Neb Soln NEB PRN (22:52)
[2016-10-10] MEDS: Sodium Chloride 0.9% 10 ML Syringe FLUSH PRN ×6 (01:54→16:27)
[2016-10-10] MEDS: Piperacillin/Tazobactam 2.25 GM in Sodium Chloride 0.9% 100 ML IV SCH ×3 (01:54→13:33)
[2016-10-10] MEDS ORDERED: prednisoLONE Syrup 5 MG/5 ML ML 120 ML Bottle PO SCH (08:00)
[2016-10-10] MEDS: Albuterol/Ipratropium 3.0-0.5 MG/3 ML Neb Soln NEB PRN (08:12)
[2016-10-10] MEDS: Magnesium Oxide 400 MG Tab PO SCH (09:10)
[2016-10-10] MEDS: Calcium Carbonate 750 MG Tab.Chew PO SCH (09:10)
[2016-10-10] MEDS: Bacitracin/Neomycin/Polymyxin B Oint 0.9 GM U/D Packet TOP SCH ×2 (09:10→18:19)
[2016-10-10] MEDS: FLUoxetine 10 MG Cap PO SCH (09:10)
[2016-10-10] MEDS: Metoprolol Succinate 25 MG Tab.ER PO SCH (09:10)
[2016-10-10] MEDS: Dutasteride 0.5 MG Cap PO SCH (09:10)
[2016-10-10] MEDS: Cyanocobalamin (Vitamin B12) 1,000 MCG Tab PO SCH (09:10)
[2016-10-10] MEDS: Tamsulosin 0.4 MG Cap.ER PO SCH (09:10)
[2016-10-10] MEDS: Ferrous Sulfate Liq 300 MG/5 ML Cup PO SCH (09:11)
[2016-10-10] MEDS: Potassium Chloride 10% 20 MEQ/15 ML Soln 15 ML UD Cup PO SCH ×2 (09:11→18:20)
[2016-10-10] MEDS: Pantoprazole 40 MG Vial IVPUSH SCH ×2 (09:22→20:55)
--- NOTE | 2016-10-10 14:32 | PCM.PN ---
- General Info Date of Service: 10/10/16 Admission Dx/Problem (Free Text): 1. CHF 2. Pneumonia 3. Anemia Subjective Update: Note some moderate gross hematochezia noted yesterday evening and also earlier this morning by nursing staff with beginning nonspecific right upper quadrant abdominal pain this morning. Patient already on IV Pepcid and IV Protonix. Good bowel movement this morning by nursing staff history Functional Status: Reports: pain controlled, tolerating diet (Although somewhat anorexic), ambulating (With assist), urinating, incentive spirometry. Denies: new symptoms Pain Score: 3 - Review of Systems General: Reports: Weakness (Mild to moderate progressive generalized), Fatigue ( Mild). Denies: Fever, Malaise, Chills, Night Sweats, Appetite (poor) HEENT: Reports: no symptoms. Denies: dysphasia, ear pain, eye pain, headaches, sinus congestion, sore throat, rhinitis, visual changes Pulmonary: Reports: cough. Denies: shortness of breath, pleuritic chest pain, sputum, hemoptysis, wheezing Cardiovascular: Reports: Dyspnea on Exertion. Denies: Chest Pain, Palpitations , Orthopnea, Edema, Lightheadedness Gastrointestinal: Reports: Abdominal pain, Decreased appetite, Difficulty swallowing, Hematochezia. Denies: Constipation, Diarrhea, Flatus, Melena, Nausea, Vomiting Genitourinary: Denies: dysuria, frequency, burning, urgency, hematuria, retention, flank pain Musculoskeletal: Denies: neck pain, shoulder pain, arm pain, back pain, leg pain Skin: Reports: pallor, bruising. Denies: diaphoresis, pruritis, rash Neurological: Reports: Weakness (As above). Denies: Confusion, Dizziness, Headache, Numbness, Paresthesia, Tingling Psychiatric: Reports: depression (Secondary to his current illness), agitation ( Some agitation with nursing staff and his daughter secondary to the patient's wishes to go home). Denies: confusion, anxiety, hallucinations, suicidal ideation, homicidal ideation - Patient Data Vitals - most recent: Last Vital Signs Temp 36.5 C 10/10/16 08:00 Pulse 74 10/10/16 09:10 Resp 19 10/10/16 08:00 BP 104/61 10/10/16 09:10 Pulse Ox 100 10/10/16 08:00 Weight - most recent: 47.4 kg I&O - last 24 hours: Intake & Output 10/09/16 10/10/16 10/10/16 22:59 06:59 14:59 Intake Total 220 200 Output Total 1 Balance 219 200 Imaging Impressions - last 24 hrs: Chest x-ray, portable, shows evidence of severe right middle lobe and right lower lobe atelectasis/consolidation with additional evidence of probable superior right lower lobe pulmonary abscess, which was also evident in recent CT scan as below. No cardiomegaly or pneumothorax. Mild pleural effusion and mild CHF Abdominal upright x-ray, one view-portable, shows no evidence of free air with moderate stool and nonspecific bowel gaseous pattern with only very occasional fluid levels X-ray reports for CT scan of the chest, abdomen, and pelvis on 10/05/16 were obtained showing evidence of probable right pulmonary abscess with additional probable lower esophageal/gastric mass and possible diffuse metastases versus Paget's disease Lab Results last 24 hrs: Laboratory Results - last 24 hr 10/10/16 10/10/16 10/10/16 Range/Units 13:45 13:45 13:45 WBC 26.5 H (4.0-10.2) K/uL RBC 2.86 L (4.33-5.41) M/uL Hgb 8.5 L D (13.1-16.8) g/dL Hct 26.7 L (39.0-49.0) % MCV 93.4 (84.0-98.0) fL MCH 29.7 (28.2-33.3) pg MCHC 31.8 (31.7-36.0) g/dL RDW 16.0 H (11.2-14.1) % Plt Count 171 (150-350) K/uL Neut % (Auto) 93.6 H (45.0-80.0) % Lymph % (Auto) 2.2 L (10.0-50.0) % [place] % (Auto) 4.1 (2.0-14.0) % Eos % (Auto) 0.0 (0.0-5.0) % Baso % (Auto) 0.1 (0.0-2.0) % Neut # (Auto) 24.82 H (1.40-7.00) K/uL Lymph # (Auto) 0.58 (0.50-3.50) K/uL [place] # (Auto) 1.08 H (0.00-1.00) K/uL Eos # (Auto) 0.00 (0.00-0.50) K/uL Baso # (Auto) 0.02 (0.00-0.20) K/uL PT 16.9 H (9.8-11.7) SEC INR 1.5 APTT 32.2 H (23.5-30.0) SEC Sodium 144 (136-145) mmol/L Potassium 3.7 (3.5-5.1) mmol/L Chloride 112 H (98-107) mmol/L Carbon Dioxide 19.6 L (21.0-32.0) mmol/L BUN 62 H (7-18) mg/dL Creatinine 2.18 H (0.51-1.17) mg/dL Est Cr Clr Drug Dosing 15.70 mL/min Estimated GFR (MDRD) 29 mL/min Glucose 162 H (74-106) mg/dL Calcium 6.2 L* (8.5-10.1) mg/dL Magnesium 1.7 L (1.8-2.4) mg/dL Total Bilirubin 0.5 (0.2-1.0) mg/dL AST 30 (15-37) U/L ALT 75 (12-78) U/L Alkaline Phosphatase 156 H (46-116) IU/L Creatine Kinase 22 L (26-308) U/L Creatine Kinase Index 9.5 H* (0.0-2.5) % CK-MB (CK-2) 2.10 (0.00-3.60) ng/mL Troponin I 0.061 H* (0.000-0.056) ng/mL Wzu-V-Lqaxrwkhizt Pept 6165 H (0-125) pg/mL Total Protein 4.7 L (6.4-8.2) g/dL Albumin 1.6 L (3.4-5.0) g/dL Amylase 38 (25-115) U/L Lipase 29 L (73-393) U/L Vancomycin Trough 22.1 H (10-20) ug/mL Manjinder Results last 24 hrs: None Med Orders - Current: Current Medications Acetaminophen (Tylenol) 650 mg PO Q6H PRN PRN Reason: Fever Albuterol/Ipratropium (Duoneb 3.0-0.5 Mg/3 Ml) 3 ml NEB Q4HRRT PRN PRN Reason: Wheezing Last Admin: 10/10/16 08:12 Dose: 3 ml Calcium Carbonate/Glycine (Tums Extra Strength) 1,500 mg PO DAILY [facility] Last Admin: 10/10/16 09:10 Dose: 1,500 mg Cyanocobalamin (Vitamin B12) 1,000 mcg PO DAILY [facility] Last Admin: 10/10/16 09:10 Dose: 1,000 mcg Dutasteride (Avodart) 0.5 mg PO QAM [facility] Last Admin: 10/10/16 09:10 Dose: 0.5 mg Ferrous Sulfate (Ferrous Sulfate) 300 mg PO BID [facility] Last Admin: 10/10/16 09:11 Dose: 300 mg Fluoxetine HCl (Prozac) 10 mg PO DAILY [facility] Last Admin: 10/10/16 09:10 Dose: 10 mg Piperacillin Sod/Tazobactam (Sod 2.25 gm/ Sodium Chloride) 100 mls @ 200 mls/ hr IV Q6H [facility] Stop: 10/11/16 07:00 Last Admin: 10/10/16 13:33 Dose: 200 mls/hr Vancomycin HCl 0.65 gm/ Sodium (Chloride) 250 mls @ 215 mls/hr IV Q24H [facility] Stop: 10/11/16 07:00 Last Admin: 10/09/16 14:22 Dose: 215 mls/hr Magnesium Oxide (Magnesium Oxide) 400 mg PO BID [facility] Last Admin: 10/10/16 09:10 Dose: 400 mg Metoprolol Succinate (Toprol Xl) 25 mg PO DAILY [facility] Last Admin: 10/10/16 09:10 Dose: 25 mg Neomycin/Polymyxin/Bacitracin (Triple Antibiotic Oint) 1 each TOP BID [facility] Last Admin: 10/10/16 09:10 Dose: 1 each Neomycin/Polymyxin/Bacitracin (Triple Antibiotic Oint) 1 each TOP BID PRN PRN Reason: Dryness Pantoprazole Sodium (Protonix Iv) 40 mg IVPUSH Q12H [facility] Last Admin: 10/10/16 09:22 Dose: 40 mg Potassium Chloride (Potassium Chloride Solution) 20 meq PO BID [facility] Last Admin: 10/10/16 09:11 Dose: 20 meq Prednisolone (Prelone 5 Mg/5 Ml) 5 mg PO DAILY [facility] Last Admin: 10/10/16 09:11 Dose: 5 mg Saliva Substitute (Rito-Stir Oral [place]) 1 ml MUCMEM ASDIRECTED PRN PRN Reason: Dryness Simvastatin (Zocor) 10 mg PO BEDTIME [facility] Last Admin: 10/09/16 20:34 Dose: 10 mg Sodium Chloride (Saline Flush) 10 ml FLUSH ASDIRECTED PRN PRN Reason: Keep Vein Open Last Admin: 10/10/16 13:34 Dose: 10 ml Tamsulosin HCl (Flomax) 0.4 mg PO DAILY [facility] Last Admin: 10/10/16 09:10 Dose: 0.4 mg Vancomycin HCl (Pharmacy To Dose - Vancomycin) 1 dose .XX ASDIRECTED [facility] Discontinued Medications Famotidine (Pepcid) 40 mg IVPUSH ONETIME ONE Stop: 10/09/16 20:41 Last Admin: 10/09/16 21:14 Dose: 40 mg Ferrous Sulfate (Ferrous Sulfate) 325 mg PO BID [facility] Last Admin: 10/09/16 09:14 Dose: Not Given Methylprednisolone (Medrol) 8 mg PO ONETIME ONE Stop: 10/09/16 07:01 Last Admin: 10/09/16 08:27 Dose: 8 mg Methylprednisolone (Medrol) 4 mg PO DAILY@1200 [facility] Stop: 10/12/16 12:01 Last Admin: 10/09/16 12:13 Dose: 4 mg Methylprednisolone (Medrol) 4 mg PO DAILY@1800 [facility] Stop: 10/11/16 18:01 Methylprednisolone (Medrol) 8 mg PO BEDTIME [facility] Stop: 10/10/16 20:01 Methylprednisolone (Medrol) 4 mg PO DAILY@0700 [facility] Stop: 10/14/16 07:01 Methylprednisolone (Medrol) 4 mg PO BEDTIME [facility] Stop: 10/13/16 20:01 Methylprednisolone Sodium Succinate (Solu-Medrol) 125 mg IVPUSH DAILY [facility] Stop: 10/08/16 08:01 Last Admin: 10/08/16 07:36 Dose: 125 mg Potassium Chloride (Klor-Con 10) 20 meq PO BIDMEALS [facility] Last Admin: 10/09/16 08:28 Dose: 20 meq - Exam Quality Assessment: supplemental oxygen, DVT prophylaxis. No: central line/PICC , urine catheter, skin breakdown, restraints General: alert, oriented, no acute distress. No: cooperative (Occasionally agitated and combative) HEENT: Pupils equal, Pupils reactive, EOMI, Mucous membr. moist/pink, Other ( Extremely poor dentition) Neck: supple, trachea midline, no JVD, no thyromegaly. No: lymphadenopathy Lungs: Decreased breath sounds (Right lower base), Rales (Moderate diffuse bilateral rales). No: Rhonchi, Rub, Wheezing Cardiovascular: Regular Rate, No Murmurs, Irregular Rhythm. No: Murmurs, Gallops, Rubs Abdomen: bowel sounds present, soft, no distension, tenderness (Mild nonspecific right upper quadrant palpation pain). No: rebound, guarding, distension, CVA tenderness (Male) Exam: Deferred Back Exam: normal inspection, full range of motion. No: CVA tenderness (L), CVA tenderness (R), muscle spasm Extremities: no edema, normal pulses, no tenderness/swelling, no calf tenderness Peripheral Pulses: 2+: radial (L), radial (R), dorsalis pedis (L), dorsalis pedis (R) Skin: ecchymosis (Moderate diffuse ecchymosis particularly on the forearms bilaterally with skin tear noted on the left forearm with no acute infection) Wound/Incisions: healing well, dressing dry and intact, no drainage Neurological: no new focal deficit, other (Moderate generalized weakness) Psy/Mental Status: alert, depressed (Moderate), agitated (Occasional). No: anxious, suicidal ideation, homicidal ideation, hallucinations, withdrawal symptoms - Problem List & Annotations (1) Comfort measures only status SNOMED Code(s): 11308331226415 Code(s): Z51.5 - ENCOUNTER FOR PALLIATIVE CARE Status: Acute Priority: High Current Visit: Yes Onset Date: 10/10/16 Annotation/Comment:: Various therapeutic options were discussed with the patient and his daughter/POA both yesterday and today with both parties deciding on no further aggressive care, including repeat blood transfusions, workup for his possible cancer, hospital transfer, etc. They are also requesting withdrawal of the majority of his medications. Hospice has been consulted and will continue his care after planned discharge with the patient wishing to at home. Per their request discharge from this facility will be delayed until 10/15 with continuation of some IV therapy during his swing bed care as below. 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 No further blood transfusions as above. Discontinue iron supplementation, oral prednisone, etc. Note significant anemia today (3) RLL pneumonia SNOMED Code(s): 508871067 Code(s): J18.1 - LOBAR PNEUMONIA, UNSPECIFIED ORGANISM Status: Acute Priority: High Current Visit: Yes Qualifiers: Pneumonia type: aspiration pneumonia Annotation/Comment:: Probable aspiration pneumonia with pulmonary abscess. Lung cancer also remains a differential with possibility of additional esophageal/gastric cancer (4) CHF (congestive heart failure) SNOMED Code(s): 70038402 Code(s): I50.9 - HEART FAILURE, UNSPECIFIED Status: Acute Current Visit: Yes Qualifiers: Congestive heart failure type: unspecified congestive heart failure type Congestive heart failure chronicity: acute on chronic Qualified Code(s): I50.9 - Heart failure, unspecified Annotation/Comment:: Continue IV Lasix therapy through swing bed care as above. Troponin I elevated likely secondary to his CHF and renal disease with artifactually elevated CK index. Cannot rule out concomitant coronary artery disease. Comfort care only as above (5) Chronic renal failure, stage 4 (severe) SNOMED Code(s): 36445335, 451635357 Code(s): N18.4 - CHRONIC KIDNEY DISEASE, STAGE 4 (SEVERE) Status: Chronic Priority: High Current Visit: Yes Annotation/Comment:: Chronic and stable , although IV vancomycin therapy will be discontinued secondary to comfort care status only and his poor renal function. (6) Hypocalcemia SNOMED Code(s): 2749951 Code(s): E83.51 - HYPOCALCEMIA Status: Acute Priority: High Current Visit: Yes Annotation/Comment:: Previous IV calcium gluconate 2 grams and subsequent daily supplementation with calcium carbonate during swing bed care with this previously refractory to IV repeletion. 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 (8) Leukocytosis SNOMED Code(s): 812830907, 689119111 Code(s): D72.829 - ELEVATED WHITE BLOOD CELL COUNT, UNSPECIFIED Status: Acute Priority: High Current Visit: Yes Qualifiers: Leukocytosis type: bandemia Qualified Code(s): D72.825 - Bandemia Annotation/Comment:: Patient does not have a fever, however significant persistent leukocytosis likely secondary to pulmonary abscess. IV vancomycin discontinued as above with additional IV Flagyl and change to IV Rocephin therapy secondary to his dysphagia, although no direct evidence of aspiration during his swing bed care with aspiration precautions in effect (9) Malnutrition SNOMED Code(s): 5961428 Code(s): E46 - UNSPECIFIED PROTEIN-CALORIE MALNUTRITION Status: Acute Priority: High Current Visit: Yes Annotation/Comment:: Progressive anorexia at this time. Continue Boost Protein Shakes for supplementation. (10) COPD (chronic obstructive pulmonary disease) SNOMED Code(s): 09111407 Code(s): J44.9 - CHRONIC OBSTRUCTIVE PULMONARY DISEASE, UNSPECIFIED Status : Chronic Priority: High Current Visit: Yes Qualifiers: COPD type: COPD with acute lower respiratory infection Qualified Code(s): J44.0 - Chronic obstructive pulmonary disease with acute lower respiratory infection Annotation/Comment:: Continue antibody therapy, nebulizer treatments, etc. for now. Prognosis poor secondary to probable pulmonary abscess (11) Dysphagia SNOMED Code(s): 22442133, 937319287 Code(s): R13.10 - DYSPHAGIA, UNSPECIFIED Status: Chronic Priority: Medium Current Visit: No Qualifiers: Dysphagia type: pharyngoesophageal phase Qualified Code(s): R13.14 - Dysphagia, pharyngoesophageal phase Annotation/Comment:: Swallowing study from 09/22/15 reviewed. Aspiration precautions with no recent history of aspiration. (12) Hyperlipidemia SNOMED Code(s): 08269843 Code(s): E78.5 - HYPERLIPIDEMIA, UNSPECIFIED Status: Chronic Priority: Medium Current Visit: Yes Qualifiers: Hyperlipidemia type: unspecified Qualified Code(s): E78.5 - Hyperlipidemia , unspecified Annotation/Comment:: Discontinue therapy secondary to poor prognosis (13) Hypertension SNOMED Code(s): 14568484 Code(s): I10 - ESSENTIAL (PRIMARY) HYPERTENSION Status: Chronic Priority : Medium Current Visit: Yes Qualifiers: Hypertension type: essential hypertension Annotation/Comment:: blood pressures stable at this time - Problem List Review Problem List Initiated/Reviewed/Updated: Yes - My Orders Last 24 Hours: My Active Orders 10/09/16 18:00 Ferrous Sulfate 300 mg PO BID Potassium Chloride [Potassium Chloride Solution] 20 meq PO BID 10/09/16 21:00 Pantoprazole [ProTONIX IV] 40 mg IVPUSH Q12H 10/10/16 05:11 EKG Documentation Completion [RC] ASDIRECTED Abdomen Series w Chest 1V [CR] Routine 10/10/16 08:00 prednisoLONE [Prelone 5 MG/5 ML] 5 mg PO DAILY 10/10/16 15:00 VANCOMYCIN PEAK [CHEM] Routine - Assessment Assessment:: As above - Plan Plan:: As above. Extensive precautions were given to the patient and his daughter, Elina, who are in agreement with the treatment plan.
[2016-10-10] MEDS: SODIUM CHLORIDE 0.9% IV SCH (14:47)
[2016-10-10] MEDS: VANCOMYCIN IV SCH (14:47)
[2016-10-10] MEDS: cefTRIAXone 1 GM in Sodium Chloride 0.9% 100 ML IV SCH (15:45)
[2016-10-10] MEDS: metroNIDAZOLE/Normal Saline 500 MG in Premix Bag 1 BAG IV SCH ×2 (16:27→23:26)
[2016-10-10] MEDS: Albuterol/Ipratropium 3.0-0.5 MG/3 ML Neb Soln NEB SCH (20:54)
[2016-10-11] MEDS: cefTRIAXone 1 GM in Sodium Chloride 0.9% 100 ML IV SCH ×2 (02:01→15:03)
[2016-10-11] MEDS: Albuterol/Ipratropium 3.0-0.5 MG/3 ML Neb Soln NEB SCH ×4 (02:01→20:28)
[2016-10-11] MEDS: FLUoxetine 10 MG Cap PO SCH (08:41)
[2016-10-11] MEDS: Potassium Chloride 10% 20 MEQ/15 ML Soln 15 ML UD Cup PO SCH ×2 (08:41→20:27)
[2016-10-11] MEDS: Pantoprazole 40 MG Vial IVPUSH SCH ×2 (08:41→20:28)
[2016-10-11] MEDS: Calcium Carbonate 750 MG Tab.Chew PO SCH (08:41)
[2016-10-11] MEDS: metroNIDAZOLE/Normal Saline 500 MG in Premix Bag 1 BAG IV SCH ×2 (08:41→15:47)
[2016-10-11] MEDS: Bacitracin/Neomycin/Polymyxin B Oint 0.9 GM U/D Packet TOP SCH ×2 (08:41→20:28)
[2016-10-11] MEDS: Metoprolol Succinate 25 MG Tab.ER PO SCH (08:41)
[2016-10-11] MEDS: Sodium Chloride 0.9% 10 ML Syringe FLUSH PRN (20:28)
[2016-10-12] MEDS: metroNIDAZOLE/Normal Saline 500 MG in Premix Bag 1 BAG IV SCH ×3 (01:11→16:26)
[2016-10-12] MEDS: Sodium Chloride 0.9% 10 ML Syringe FLUSH PRN ×3 (01:11→10:03)
[2016-10-12] MEDS: Albuterol/Ipratropium 3.0-0.5 MG/3 ML Neb Soln NEB SCH ×4 (01:11→21:16)
[2016-10-12] MEDS: cefTRIAXone 1 GM in Sodium Chloride 0.9% 100 ML IV SCH ×2 (02:18→14:37)
[2016-10-12] MEDS: Calcium Carbonate 750 MG Tab.Chew PO SCH (10:03)
[2016-10-12] MEDS: Metoprolol Succinate 25 MG Tab.ER PO SCH (10:03)
[2016-10-12] MEDS: Potassium Chloride 10% 20 MEQ/15 ML Soln 15 ML UD Cup PO SCH ×2 (10:04→18:35)
[2016-10-12] MEDS: Pantoprazole 40 MG Vial IVPUSH SCH ×2 (10:04→21:16)
[2016-10-12] MEDS: FLUoxetine 10 MG Cap PO SCH (10:05)
[2016-10-12] MEDS: Bacitracin/Neomycin/Polymyxin B Oint 0.9 GM U/D Packet TOP SCH ×2 (10:49→18:37)
[2016-10-12] MEDS: Acetaminophen 325 MG Tab PO PRN (18:37)
[2016-10-13] MEDS: metroNIDAZOLE/Normal Saline 500 MG in Premix Bag 1 BAG IV SCH ×4 (00:08→23:43)
[2016-10-13] MEDS: cefTRIAXone 1 GM in Sodium Chloride 0.9% 100 ML IV SCH ×2 (02:54→15:04)
[2016-10-13] MEDS: Albuterol/Ipratropium 3.0-0.5 MG/3 ML Neb Soln NEB SCH ×4 (02:54→21:23)
[2016-10-13] MEDS: Acetaminophen 325 MG Tab PO PRN ×2 (08:41→22:11)
[2016-10-13] MEDS: Pantoprazole 40 MG Vial IVPUSH SCH ×2 (08:42→21:24)
[2016-10-13] MEDS: Bacitracin/Neomycin/Polymyxin B Oint 0.9 GM U/D Packet TOP SCH ×2 (08:42→17:17)
[2016-10-13] MEDS: Calcium Carbonate 750 MG Tab.Chew PO SCH (08:43)
[2016-10-13] MEDS: Metoprolol Succinate 25 MG Tab.ER PO SCH (08:43)
[2016-10-13] MEDS: Potassium Chloride 10% 20 MEQ/15 ML Soln 15 ML UD Cup PO SCH ×2 (08:45→17:17)
[2016-10-13] MEDS: FLUoxetine 10 MG Cap PO SCH (08:45)
[2016-10-13] MEDS: Sodium Chloride 0.9% 10 ML Syringe FLUSH PRN ×2 (15:04→15:47)
[2016-10-14] MEDS: Albuterol/Ipratropium 3.0-0.5 MG/3 ML Neb Soln NEB SCH ×4 (03:21→20:38)
[2016-10-14] MEDS: cefTRIAXone 1 GM in Sodium Chloride 0.9% 100 ML IV SCH ×2 (03:21→14:49)
[2016-10-14] MEDS: FLUoxetine 10 MG Cap PO SCH (07:29)
[2016-10-14] MEDS: Potassium Chloride 10% 20 MEQ/15 ML Soln 15 ML UD Cup PO SCH ×2 (07:29→17:11)
[2016-10-14] MEDS: Calcium Carbonate 750 MG Tab.Chew PO SCH (07:29)
[2016-10-14] MEDS: metroNIDAZOLE/Normal Saline 500 MG in Premix Bag 1 BAG IV SCH ×3 (07:29→23:20)
[2016-10-14] MEDS: Bacitracin/Neomycin/Polymyxin B Oint 0.9 GM U/D Packet TOP SCH ×2 (07:30→17:11)
[2016-10-14] MEDS: Sodium Chloride 0.9% 10 ML Syringe FLUSH PRN ×3 (07:34→14:51)
[2016-10-14] MEDS: Metoprolol Succinate 25 MG Tab.ER PO SCH (07:44)
[2016-10-14] MEDS: Pantoprazole 40 MG Vial IVPUSH SCH ×2 (09:36→20:38)
[2016-10-14] MEDS: Acetaminophen 325 MG Tab PO PRN (14:49)
[2016-10-15] MEDS: Albuterol/Ipratropium 3.0-0.5 MG/3 ML Neb Soln NEB SCH ×2 (02:16→07:29)
[2016-10-15] MEDS: cefTRIAXone 1 GM in Sodium Chloride 0.9% 100 ML IV SCH (02:16)
[2016-10-15] MEDS: Calcium Carbonate 750 MG Tab.Chew PO SCH (07:28)
[2016-10-15] MEDS: metroNIDAZOLE/Normal Saline 500 MG in Premix Bag 1 BAG IV SCH (07:28)
[2016-10-15] MEDS: Bacitracin/Neomycin/Polymyxin B Oint 0.9 GM U/D Packet TOP SCH (07:29)
[2016-10-15] MEDS: Acetaminophen 325 MG Tab PO PRN (07:29)
[2016-10-15] MEDS: FLUoxetine 10 MG Cap PO SCH (07:29)
[2016-10-15] MEDS: Potassium Chloride 10% 20 MEQ/15 ML Soln 15 ML UD Cup PO SCH (07:29)
[2016-10-15] MEDS: Sodium Chloride 0.9% 10 ML Syringe FLUSH PRN ×2 (07:34→09:12)
[2016-10-15] MEDS: Metoprolol Succinate 25 MG Tab.ER PO SCH (07:47)
[2016-10-15 07:48] VITALS: BP 123/77
[2016-10-15] MEDS: Pantoprazole 40 MG Vial IVPUSH SCH (09:12)
[2016-10-15] MEDS ORDERED: traMADol 50 MG Tab PO PRN (10:00)
[2016-10-15] MEDS ORDERED: HYDROmorphone 1 MG/ML Syringe IVPUSH PRN (10:00)
--- NOTE | 2016-10-15 12:08 | PCM.DCSUM1 ---
Discharge Summary - Hospital Course HPI Initial Comments: See emergency room note/admission H&P Brief History: See the emergency room note/admission H&P - Discharge Data Discharge Date: 10/15/16 Discharge Disposition: DC/Tfer to Hospice - Home 50 Condition: Poor - Discharge Diagnosis/Problem(s) (1) Comfort measures only status SNOMED Code(s): 77638571627911 ICD Code: Z51.5 - ENCOUNTER FOR PALLIATIVE CARE Status: Acute Priority: High Current Visit: Yes Onset Date: 10/10/16 Problem Details: Various therapeutic options were discussed with the patient and his daughter/POA with the patient wanting to go home today. The patient does have a hospital bed at home. Hospice has been initiated with social media strategist in the patient's room today. Both the patient and his daughter have decided on no further aggressive care, including repeat blood transfusions, workup for his possible cancer, hospital transfer, etc. They are also requesting withdrawal of the majority of his medications. The patient wishes to at home and both parties are aware of his extremely poor prognosis. Change to antibiotic care. Note diagnosis of probable GI bleed esophageal mass. Patient does have right hip pain at this time with Ultram ordered today with further pain control through hospice standard orders. The patient's regular provider, Ralph Chaparro PA-C, at the [facility] in [place], assumes the patient's care, including further hospice orders, etc.. Prognosis is extremely poor with current guarded condition. 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 No further blood transfusions as above. Discontinue iron supplementation, oral prednisone, etc. Note significant progressive anemia today Qualifiers: GI bleed type/associated pathology: unspecified gastrointestinal hemorrhage type Qualified Code(s): K92.2 - Gastrointestinal hemorrhage, unspecified (3) RLL pneumonia SNOMED Code(s): 498212258 ICD Code: J18.1 - LOBAR PNEUMONIA, UNSPECIFIED ORGANISM Status: Acute Priority: High Current Visit: Yes Problem Details: Probable aspiration pneumonia with pulmonary abscess. Lung cancer also remains a differential with possibility of additional esophageal/gastric cancer. Change to oral antibiotic therapy Qualifiers: Pneumonia type: aspiration pneumonia (4) CHF (congestive heart failure) SNOMED Code(s): 16837024 ICD Code: I50.9 - HEART FAILURE, UNSPECIFIED Status: Acute Current Visit : Yes Problem Details: Change to oral Lasix therapy. Troponin I elevated likely secondary to his CHF and renal disease with artifactually elevated CK index. Cannot rule out concomitant coronary artery disease. Comfort care only as above Qualifiers: Congestive heart failure type: unspecified congestive heart failure type Congestive heart failure chronicity: acute on chronic Qualified Code(s): I50.9 - Heart failure, unspecified (5) Chronic renal failure, stage 4 (severe) SNOMED Code(s): 87282313, 254900176 ICD Code: N18.4 - CHRONIC KIDNEY DISEASE, STAGE 4 (SEVERE) Status: Chronic Priority: High Current Visit: Yes Problem Details: Chronic and stable. Previous IV vancomycin therapy was discontinued secondary to comfort care status only and his poor renal function. (6) Hypocalcemia SNOMED Code(s): 4493690 ICD Code: E83.51 - HYPOCALCEMIA Status: Acute Priority: High Current Visit: Yes Problem Details: Discontinue calcium supplementation. Secondary to comfort care and as per the patient's and his daughter's wishes majority of medications will be discontinued at this time as above (7) Hypokalemia SNOMED Code(s): 26152859 ICD Code: E87.6 - HYPOKALEMIA Status: Acute Priority: High Current Visit: Yes Problem Details: Continue potassium chloride supplementation for now secondary to Lasix therapy with supplement previously changed to solution secondary to patient's dysphagia likely secondary to probable esophageal cancer. (8) Leukocytosis SNOMED Code(s): 918494976, 817519408 ICD Code: D72.829 - ELEVATED WHITE BLOOD CELL COUNT, UNSPECIFIED Status: Acute Priority: High Current Visit: Yes Problem Details: Patient does not have a fever, however somewhat improved leukocytosis likely secondary to pulmonary abscess. Change from previous IV Flagyl and IV Rocephin therapy to oral Cipro and oral Flagyl for 10 days. Note secondary to his dysphagia, medications may be crushed. No direct evidence of aspiration during his swing bed care with aspiration precautions in effect Qualifiers: Leukocytosis type: bandemia Qualified Code(s): D72.825 - Bandemia (9) Malnutrition SNOMED Code(s): 1619193 ICD Code: E46 - UNSPECIFIED PROTEIN-CALORIE MALNUTRITION Status: Acute Priority: High Current Visit: Yes Problem Details: Progressive anorexia at this time. Continue Boost Protein Shakes for supplementation. (10) COPD (chronic obstructive pulmonary disease) SNOMED Code(s): 58620074 ICD Code: J44.9 - CHRONIC OBSTRUCTIVE PULMONARY DISEASE, UNSPECIFIED Status : Chronic Priority: High Current Visit: Yes Problem Details: Continue antibody therapy, nebulizer treatments, etc. for now. Prognosis poor secondary to probable pulmonary abscess Qualifiers: COPD type: COPD with acute lower respiratory infection Qualified Code(s): J44.0 - Chronic obstructive pulmonary disease with acute lower respiratory infection (11) Dysphagia SNOMED Code(s): 01648298, 744237095 ICD Code: R13.10 - DYSPHAGIA, UNSPECIFIED Status: Chronic Priority: Medium Current Visit: No Problem Details: Swallowing study from 09/22/15 reviewed. Aspiration precautions with no recent history of aspiration. Qualifiers: Dysphagia type: pharyngoesophageal phase Qualified Code(s): R13.14 - Dysphagia, pharyngoesophageal phase (12) Hyperlipidemia SNOMED Code(s): 77128509 ICD Code: E78.5 - HYPERLIPIDEMIA, UNSPECIFIED Status: Chronic Priority: Medium Current Visit: Yes Problem Details: Discontinue therapy secondary to poor prognosis Qualifiers: Hyperlipidemia type: unspecified Qualified Code(s): E78.5 - Hyperlipidemia , unspecified (13) Hypertension SNOMED Code(s): 31716191 ICD Code: I10 - ESSENTIAL (PRIMARY) HYPERTENSION Status: Chronic Priority : Medium Current Visit: Yes Problem Details: blood pressures stable at this time Qualifiers: Hypertension type: essential hypertension - Patient Summary/Data Operative Procedure(s) Performed: None Complications: Lower GI bleed with progressive anemia. Dysphagia with no aspiration Consults: Consultations 10/07/16 13:20 Consult to Case Management [CONS] Routine Consult to Occupational Therapy [OT Evaluation and Treatment] [CONS] Routine Consult to Physical Therapy [PT Evaluation and Treatment] [CONS] Routine Pharmacy Consult [Consult to Pharmacy] [CONS] Routine 10/10/16 15:10 Consult to Hospice [CONS] Routine Labs Pending at D/C: None Recommended Follow-up Testing/Procedures: Per the discretion of his regular provider, Ralph Chaparro PA-C, at the [facility] in [place], Planned Operative Procedure(s) after DC: None Hospital Course: The patient was transferred from inpatient/acute care for further treatment of suspected CHF and pneumonia. Multiple changes and antibiotics during his swing bed care, including discontinuation of IV vancomycin secondary to his worsening renal function. Patient did respond well to IV Rocephin and IV Flagyl therapy, but no evidence of aspiration during this hospitalization. Patient also received aggressive nebulizer therapy and multiple consultations as above. Initially both the patient and his daughter/POA, Elina, were uncertain concerning possible future care, including workup for his suspected pulmonary abscess/lung cancer and/or probable esophageal cancer. They have elected for comfort care only with hospice already initiated. Long-term prognosis is extremely poor. Emotional support provided. - Patient Instructions Diet: Fluid Restriction Diet, Other: 2000 cc daily fluid restriction, diverticulosis, aspiration precautions Activity: Bedrest, May Use Bathroom (Strict fall precautions) Driving: Do Not Drive Showering/Bathing: May Shower Notify Provider of: Fever, Increased Pain, Nausea and/or Vomiting - Discharge Plan Prescriptions/Med Rec: Albuterol/Ipratropium [DuoNeb 3.0-0.5 MG/3 ML] 3 ml NEB Q6HRRT #60 neb Potassium Chloride [Potassium Chloride Solution] 20 meq PO BID #1 bottle traMADol [Ultram] 50 mg PO Q6H PRN #30 tablet PRN Reason: Pain (Severe 7-10) Home Medications: Home Meds Nitroglycerin [Nitrostat] 0.4 mg SL ASDIRECTED PRN 09/19/15 [History] Sennosides/Docusate Sodium [Senna-Docusate Sodium] 1 tab PO BID 09/19/15 [ History] Cyanocobalamin (Vitamin B-12) [B-12] 1,000 mcg PO DAILY 10/03/16 [History] Metoprolol Succinate [Toprol XL] 25 mg PO DAILY 10/03/16 [History] FLUoxetine [PROzac] 10 mg PO DAILY 10/04/16 [History] Acetaminophen [Tylenol] 650 mg PO Q4H PRN #100 tablet 10/15/16 [Rx] Albuterol/Ipratropium [DuoNeb 3.0-0.5 MG/3 ML] 3 ml NEB Q4HRRT PRN #0 neb [Rx] Albuterol/Ipratropium [DuoNeb 3.0-0.5 MG/3 ML] 3 ml NEB Q6HRRT #60 neb 10/15/16 [Rx] Bacitracin/Neomycin/Polymyxin [Triple Antibiotic Oint] 1 each TOP BID packet [Rx] Calcium Carbonate [Tums Extra Strength] 1,500 mg PO DAILY tab.chew 10/15/16 [Rx ] Potassium Chloride [Potassium Chloride Solution] 20 meq PO BID #1 bottle [Rx] traMADol [Ultram] 50 mg PO Q6H PRN #30 tablet 10/15/16 [Rx] Patient Handouts: Heart Failure, [id number], Aspiration Pneumonia Referrals: Ralph Chaparro PA [[employer]] - - Discharge Summary/Plan Comment DC Time >30 min.: Yes (Coordination of care) Discharge Summary/Plan Comment: 1. Initiate standard hospice orders 2. Future orders per the patient's regular provider, Ralph Chaparro PA-C, at the [facility] in [place], including recommended followup blood work, followup in his office, etc. - General Info Date of Service: 10/15/16 Admission Dx/Problem (Free Text: 1. CHF 2. Pneumonia 3. Anemia Subjective Update: No abdominal pain today. Mild persistent although improved intermittent hematochezia with progressive anemia as above/below. He does complain of moderate right hip pain, however, with no history of fall, injury, etc. Question possible metastases versus arthritis-type symptoms Functional Status: Reports: pain controlled, tolerating diet (Although somewhat anorexic), ambulating (With assist), urinating, new symptoms (Right hip pain as above) Numeric/FACES Score: 5 - Review of Systems General: Reports: Weakness, Fatigue, Appetite (Somewhat poor with no aspiration) . Denies: Fever, Malaise, Chills, Night Sweats HEENT: Reports: no symptoms. Denies: ear pain, eye pain, headaches, sinus congestion, sore throat, rhinitis, visual changes Pulmonary: Reports: cough, wheezing. Denies: shortness of breath, pleuritic chest pain, sputum, hemoptysis Cardiovascular: Reports: Dyspnea on Exertion, Lightheadedness. Denies: Chest Pain, Palpitations, Orthopnea, PND, Edema Gastrointestinal: Reports: Decreased appetite, Hematochezia. Denies: Abdominal pain, Constipation, Diarrhea, Difficulty swallowing, Flatus, Melena, Nausea, Vomiting Genitourinary: Reports: incontinence. Denies: dysuria, frequency, burning, urgency, hematuria, retention, flank pain Musculoskeletal: Reports: joint pain (Right hip). Denies: neck pain, shoulder pain, arm pain, hand pain, leg pain Skin: Reports: pallor (Progressive), bruising (Improved). Denies: jaundice, diaphoresis Neurological: Reports: Difficulty Walking (Secondary to weakness), Weakness. Denies: Confusion, Dizziness, Headache, Seizure, Syncope Psychiatric: Reports: no symptoms. Denies: confusion, depression, anxiety, agitation, hallucinations - Patient Data Vitals - Most Recent: Last Vital Signs Temp 37.0 C 10/15/16 07:48 Pulse 84 10/15/16 07:48 Resp 20 10/15/16 07:48 BP 123/77 10/15/16 07:48 Pulse Ox 97 10/15/16 07:48 Vital Signs (72 hours) 10/12/16 10/13/16 10/13/16 20:00 08:00 08:43 Temperature [ Axillary] Temperature [ 37.3 C 36.3 C Oral] Pulse, 83 Peripheral Pulse, 71 83 Peripheral [ Right Pulse Oximetry] Respiratory 14 18 Rate Blood Pressure 117/65 Blood Pressure 117/65 [Left Upper Arm ] Blood Pressure 114/63 [Right Upper Arm] O2 Sat by Pulse 90 L Oximetry 10/13/16 10/14/16 10/14/16 20:00 07:44 08:00 Temperature [ 36.7 C Axillary] Temperature [ Oral] Pulse, 75 Peripheral Pulse, 72 73 Peripheral [ Right Pulse Oximetry] Respiratory 16 18 Rate Blood Pressure 127/66 Blood Pressure 127/66 [Left Upper Arm ] Blood Pressure 119/75 [Right Upper Arm] O2 Sat by Pulse 100 100 Oximetry 10/14/16 10/15/16 10/15/16 20:00 07:47 07:48 Temperature [ Axillary] Temperature [ 36.7 C 37.0 C Oral] Pulse, 84 Peripheral Pulse, 80 84 Peripheral [ Right Pulse Oximetry] Respiratory 20 20 Rate Blood Pressure 123/77 Blood Pressure 123/77 [Left Upper Arm ] Blood Pressure 104/61 [Right Upper Arm] O2 Sat by Pulse 98 97 Oximetry Weight - Most Recent: 47.174 kg I&O - Last 24 hours: Intake & Output 10/14/16 10/15/16 10/15/16 22:59 06:59 14:59 Intake Total 340 160 Output Total 200 Balance 340 -40 Imaging Impressions - Last 24 hrs: Chest x-ray, portable, on 10/10/16 shows evidence of severe right middle lobe and right lower lobe atelectasis/consolidation with additional evidence of probable superior right lower lobe pulmonary abscess, which was also evident in recent CT scan as below. No cardiomegaly or pneumothorax. Mild pleural effusion and mild CHF Abdominal upright x-ray, one view-portable, on 10/10/16 shows no evidence of free air with moderate stool and nonspecific bowel gaseous pattern with only very occasional fluid levels X-ray reports for CT scan of the chest, abdomen, and pelvis on 10/05/16 were obtained showing evidence of probable right pulmonary abscess with additional probable lower esophageal/gastric mass and possible diffuse metastases versus Paget's disease Lab Results - Last 24 hrs: Laboratory Results - last 24 hr 10/15/16 10/15/16 Range/Units 07:00 07:00 WBC 14.6 H (4.0-10.2) K/uL RBC 2.56 L (4.33-5.41) M/uL Hgb 7.7 L (13.1-16.8) g/dL Hct 24.3 L* (39.0-49.0) % MCV 94.9 (84.0-98.0) fL MCH 30.1 (28.2-33.3) pg MCHC 31.7 (31.7-36.0) g/dL RDW 17.2 H (11.2-14.1) % Plt Count 154 (150-350) K/uL Neut % (Auto) 89.4 H (45.0-80.0) % Lymph % (Auto) 5.4 L (10.0-50.0) % [place] % (Auto) 4.6 (2.0-14.0) % Eos % (Auto) 0.5 (0.0-5.0) % Baso % (Auto) 0.1 (0.0-2.0) % Neut # (Auto) 13.07 H (1.40-7.00) K/uL Lymph # (Auto) 0.79 (0.50-3.50) K/uL [place] # (Auto) 0.67 (0.00-1.00) K/uL Eos # (Auto) 0.08 (0.00-0.50) K/uL Baso # (Auto) 0.01 (0.00-0.20) K/uL Sodium 143 (136-145) mmol/L Potassium 4.5 (3.5-5.1) mmol/L Chloride 113 H (98-107) mmol/L Carbon Dioxide 19.2 L (21.0-32.0) mmol/L BUN 28 H D (7-18) mg/dL Creatinine 2.26 H (0.51-1.17) mg/dL Est Cr Clr Drug Dosing 15.08 mL/min Estimated GFR (MDRD) 28 mL/min Glucose 84 (74-106) mg/dL Calcium 6.0 L* (8.5-10.1) mg/dL Total Bilirubin 0.3 (0.2-1.0) mg/dL AST 18 (15-37) U/L ALT 24 (12-78) U/L Alkaline Phosphatase 247 H (46-116) IU/L Troponin I 0.055 (0.000-0.056) ng/mL Sav-G-Dpbbxtxsiqe Pept 5033 H (0-125) pg/mL Total Protein 4.5 L (6.4-8.2) g/dL Albumin 1.4 L (3.4-5.0) g/dL Laboratory Tests 10/10/16 10/10/16 10/10/16 Range/Units 13:45 13:45 13:45 WBC 26.5 H (4.0-10.2) K/uL RBC 2.86 L (4.33-5.41) M/uL Hgb 8.5 L D (13.1-16.8) g/dL Hct 26.7 L (39.0-49.0) % MCV 93.4 (84.0-98.0) fL MCH 29.7 (28.2-33.3) pg MCHC 31.8 (31.7-36.0) g/dL RDW 16.0 H (11.2-14.1) % Plt Count 171 (150-350) K/uL Neut % (Auto) 93.6 H (45.0-80.0) % Lymph % (Auto) 2.2 L (10.0-50.0) % [place] % (Auto) 4.1 (2.0-14.0) % Eos % (Auto) 0.0 (0.0-5.0) % Baso % (Auto) 0.1 (0.0-2.0) % Neut # (Auto) 24.82 H (1.40-7.00) K/uL Lymph # (Auto) 0.58 (0.50-3.50) K/uL [place] # (Auto) 1.08 H (0.00-1.00) K/uL Eos # (Auto) 0.00 (0.00-0.50) K/uL Baso # (Auto) 0.02 (0.00-0.20) K/uL PT 16.9 H (9.8-11.7) SEC INR 1.5 APTT 32.2 H (23.5-30.0) SEC Sodium 144 (136-145) mmol/L Potassium 3.7 (3.5-5.1) mmol/L Chloride 112 H (98-107) mmol/L Carbon Dioxide 19.6 L (21.0-32.0) mmol/L BUN 62 H (7-18) mg/dL Creatinine 2.18 H (0.51-1.17) mg/dL Est Cr Clr Drug Dosing 15.70 mL/min Estimated GFR (MDRD) 29 mL/min Glucose 162 H (74-106) mg/dL Calcium 6.2 L* (8.5-10.1) mg/dL Magnesium 1.7 L (1.8-2.4) mg/dL Total Bilirubin 0.5 (0.2-1.0) mg/dL AST 30 (15-37) U/L ALT 75 (12-78) U/L Alkaline Phosphatase 156 H (46-116) IU/L Creatine Kinase 22 L (26-308) U/L Creatine Kinase Index 9.5 H* (0.0-2.5) % CK-MB (CK-2) 2.10 (0.00-3.60) ng/mL Troponin I 0.061 H* (0.000-0.056) ng/mL Twp-D-Knofivczgis Pept 6165 H (0-125) pg/mL Total Protein 4.7 L (6.4-8.2) g/dL Albumin 1.6 L (3.4-5.0) g/dL Amylase 38 (25-115) U/L Lipase 29 L (73-393) U/L Vancomycin Trough 22.1 H (10-20) ug/mL 10/15/16 10/15/16 Range/Units 07:00 07:00 WBC 14.6 H (4.0-10.2) K/uL RBC 2.56 L (4.33-5.41) M/uL Hgb 7.7 L (13.1-16.8) g/dL Hct 24.3 L* (39.0-49.0) % MCV 94.9 (84.0-98.0) fL MCH 30.1 (28.2-33.3) pg MCHC 31.7 (31.7-36.0) g/dL RDW 17.2 H (11.2-14.1) % Plt Count 154 (150-350) K/uL Neut % (Auto) 89.4 H (45.0-80.0) % Lymph % (Auto) 5.4 L (10.0-50.0) % [place] % (Auto) 4.6 (2.0-14.0) % Eos % (Auto) 0.5 (0.0-5.0) % Baso % (Auto) 0.1 (0.0-2.0) % Neut # (Auto) 13.07 H (1.40-7.00) K/uL Lymph # (Auto) 0.79 (0.50-3.50) K/uL [place] # (Auto) 0.67 (0.00-1.00) K/uL Eos # (Auto) 0.08 (0.00-0.50) K/uL Baso # (Auto) 0.01 (0.00-0.20) K/uL PT (9.8-11.7) SEC INR APTT (23.5-30.0) SEC Sodium 143 (136-145) mmol/L Potassium 4.5 (3.5-5.1) mmol/L Chloride 113 H (98-107) mmol/L Carbon Dioxide 19.2 L (21.0-32.0) mmol/L BUN 28 H D (7-18) mg/dL Creatinine 2.26 H (0.51-1.17) mg/dL Est Cr Clr Drug Dosing 15.08 mL/min Estimated GFR (MDRD) 28 mL/min Glucose 84 (74-106) mg/dL Calcium 6.0 L* (8.5-10.1) mg/dL Magnesium (1.8-2.4) mg/dL Total Bilirubin 0.3 (0.2-1.0) mg/dL AST 18 (15-37) U/L ALT 24 (12-78) U/L Alkaline Phosphatase 247 H (46-116) IU/L Creatine Kinase (26-308) U/L Creatine Kinase Index (0.0-2.5) % CK-MB (CK-2) (0.00-3.60) ng/mL Troponin I 0.055 (0.000-0.056) ng/mL Okl-W-Vzhernlstnq Pept 5033 H (0-125) pg/mL Total Protein 4.5 L (6.4-8.2) g/dL Albumin 1.4 L (3.4-5.0) g/dL Amylase (25-115) U/L Lipase (73-393) U/L Vancomycin Trough (10-20) ug/mL ELLA Results - Last 24 hrs: None Med Orders - Current: Current Medications Acetaminophen (Tylenol) 650 mg PO Q4H PRN PRN Reason: Fever Last Admin: 10/15/16 07:29 Dose: 650 mg Albuterol/Ipratropium (Duoneb 3.0-0.5 Mg/3 Ml) 3 ml NEB Q4HRRT PRN PRN Reason: Wheezing Last Admin: 10/10/16 08:12 Dose: 3 ml Albuterol/Ipratropium (Duoneb 3.0-0.5 Mg/3 Ml) 3 ml NEB Q6HRRT JESSY Last Admin: 10/15/16 07:29 Dose: 3 ml Calcium Carbonate/Glycine (Tums Extra Strength) 1,500 mg PO DAILY COUNT INCLUDES THE [facility] Last Admin: 10/15/16 07:28 Dose: 1,500 mg Fluoxetine HCl (Prozac) 10 mg PO DAILY COUNT INCLUDES THE [facility] Last Admin: 10/15/16 07:29 Dose: 10 mg Hydromorphone HCl (Dilaudid) 1 mg IVPUSH Q6H PRN PRN Reason: Pain (severe 7-10) Metronidazole 500 mg/ Premix 100 mls @ 100 mls/hr IV Q8H COUNT INCLUDES THE [facility] Last Admin: 10/15/16 07:28 Dose: 100 mls/hr Ceftriaxone Sodium 1 gm/ (Sodium Chloride) 100 mls @ 200 mls/hr IV Q12H COUNT INCLUDES THE [facility] Last Admin: 10/15/16 02:16 Dose: 200 mls/hr Metoprolol Succinate (Toprol Xl) 25 mg PO DAILY COUNT INCLUDES THE [facility] Last Admin: 10/15/16 07:47 Dose: 25 mg Neomycin/Polymyxin/Bacitracin (Triple Antibiotic Oint) 1 each TOP BID COUNT INCLUDES THE [facility] Last Admin: 10/15/16 07:29 Dose: 1 each Neomycin/Polymyxin/Bacitracin (Triple Antibiotic Oint) 1 each TOP BID PRN PRN Reason: Dryness Pantoprazole Sodium (Protonix Iv) 40 mg IVPUSH Q12H COUNT INCLUDES THE [facility] Last Admin: 10/15/16 09:12 Dose: 40 mg Potassium Chloride (Potassium Chloride Solution) 20 meq PO BID COUNT INCLUDES THE [facility] Last Admin: 10/15/16 07:29 Dose: 20 meq Saliva Substitute (Rito-Stir Oral [place]) 1 ml MUCMEM ASDIRECTED PRN PRN Reason: Dryness Sodium Chloride (Saline Flush) 10 ml FLUSH ASDIRECTED PRN PRN Reason: Keep Vein Open Last Admin: 10/15/16 09:12 Dose: 10 ml Tramadol HCl (Ultram) 50 mg PO Q6H PRN PRN Reason: Pain (moderate 4-6) Discontinued Medications Acetaminophen (Tylenol) 650 mg PO Q6H PRN PRN Reason: Fever Cyanocobalamin (Vitamin B12) 1,000 mcg PO DAILY COUNT INCLUDES THE [facility] Last Admin: 10/10/16 09:10 Dose: 1,000 mcg Dutasteride (Avodart) 0.5 mg PO QAM COUNT INCLUDES THE [facility] Last Admin: 10/10/16 09:10 Dose: 0.5 mg Famotidine (Pepcid) 40 mg IVPUSH ONETIME ONE Stop: 10/09/16 20:41 Last Admin: 10/09/16 21:14 Dose: 40 mg Ferrous Sulfate (Ferrous Sulfate) 325 mg PO BID COUNT INCLUDES THE [facility] Last Admin: 10/09/16 09:14 Dose: Not Given Ferrous Sulfate (Ferrous Sulfate) 300 mg PO BID COUNT INCLUDES THE [facility] Last Admin: 10/10/16 09:11 Dose: 300 mg Piperacillin Sod/Tazobactam (Sod 2.25 gm/ Sodium Chloride) 100 mls @ 200 mls/ hr IV Q6H JESSY Stop: 10/11/16 07:00 Last Admin: 10/10/16 13:33 Dose: 200 mls/hr Vancomycin HCl 0.65 gm/ Sodium (Chloride) 250 mls @ 215 mls/hr IV Q24H COUNT INCLUDES THE [facility] Stop: 10/11/16 07:00 Last Admin: 10/10/16 14:47 Dose: Not Given Magnesium Oxide (Magnesium Oxide) 400 mg PO BID COUNT INCLUDES THE [facility] Last Admin: 10/10/16 09:10 Dose: 400 mg Methylprednisolone (Medrol) 8 mg PO ONETIME ONE Stop: 10/09/16 07:01 Last Admin: 10/09/16 08:27 Dose: 8 mg Methylprednisolone (Medrol) 4 mg PO DAILY@1200 COUNT INCLUDES THE [facility] Stop: 10/12/16 12:01 Last Admin: 10/09/16 12:13 Dose: 4 mg Methylprednisolone (Medrol) 4 mg PO DAILY@1800 COUNT INCLUDES THE [facility] Stop: 10/11/16 18:01 Methylprednisolone (Medrol) 8 mg PO BEDTIME COUNT INCLUDES THE [facility] Stop: 10/10/16 20:01 Methylprednisolone (Medrol) 4 mg PO DAILY@0700 COUNT INCLUDES THE [facility] Stop: 10/14/16 07:01 Methylprednisolone (Medrol) 4 mg PO BEDTIME JESSY Stop: 10/13/16 20:01 Methylprednisolone Sodium Succinate (Solu-Medrol) 125 mg IVPUSH DAILY COUNT INCLUDES THE [facility] Stop: 10/08/16 08:01 Last Admin: 10/08/16 07:36 Dose: 125 mg Potassium Chloride (Klor-Con 10) 20 meq PO BIDMEALS COUNT INCLUDES THE [facility] Last Admin: 10/09/16 08:28 Dose: 20 meq Prednisolone (Prelone 5 Mg/5 Ml) 5 mg PO DAILY COUNT INCLUDES THE [facility] Last Admin: 10/10/16 09:11 Dose: 5 mg Simvastatin (Zocor) 10 mg PO BEDTIME COUNT INCLUDES THE [facility] Last Admin: 10/09/16 20:34 Dose: 10 mg Tamsulosin HCl (Flomax) 0.4 mg PO DAILY COUNT INCLUDES THE [facility] Last Admin: 10/10/16 09:10 Dose: 0.4 mg Vancomycin HCl (Pharmacy To Dose - Vancomycin) 1 dose .XX ASDIRECTED JESSY - Exam Quality Assessment: Reports: supplemental oxygen, DVT prophylaxis. Denies: central line/PICC, urine catheter, skin breakdown, restraints General: Reports: alert, oriented, cooperative, no acute distress HEENT: Reports: Pupils equal, Pupils reactive, EOMI, Mucous membr. moist/pink, Other (Extremely poor dentition) Neck: Reports: supple, trachea midline, no JVD, no thyromegaly. Denies: lymphadenopathy Lungs: Reports: Normal respiratory effort, Rales (Mild bilateral basilar). Denies: Rhonchi, Rub, Stridor Cardiovascular: Reports: Regular Rate, Irregular Rhythm. Denies: No Murmurs, Gallops, Rubs Abdomen: Reports: bowel sounds present, soft, no tenderness, no distension, other (Severe cachexia). Denies: rebound, guarding, CVA tenderness (Male) Exam: Deferred Rectal (Males) Exam: Deferred Back Exam: Reports: normal inspection, full range of motion. Denies: CVA tenderness (L), CVA tenderness (R), muscle spasm Extremities: Reports: no edema, normal pulses, other (Mild right hip pain with movement). Denies: no calf tenderness Skin: Reports: ecchymosis (Improved ecchymosis in the forearms bilaterally), other (Progressive pallor) Wound/Incisions: Reports: healing well (Skin tears healing well) Neurological: Reports: no new focal deficit, other (Moderate generalized weakness) Psy/Mental Status: Reports: alert, normal affect, normal mood. Denies: agitated , hallucinations, withdrawal symptoms *Q Meaningful Use (DIS) - VTE *Q VTE Criteria *Q: - Stroke *Q Stroke Criteria *Q: - AMI *Q AMI Criteria *Q:
--- NOTE | 2016-10-15 12:43 | PCM.SN ---
- Free Text/Narrative Note: No dictation error in discharge summary on 10/15/16. Patient will also be treated with Prilosec 20 mg by mouth twice a day, #60 with no refills, Cipro suspension, 250 mg per 5 cc, 10 cc by mouth daily x10 days, and Augmentin suspension, 600 milligrams per 5 cc, 5 cc by mouth 3 times a day with food x10 days, with his prescriptions be called to his pharmacy. Note that the patient did not receive Lasix or Bumex during the swing bed care secondary to his previous severe hypokalemia with IV potassium chloride infusion needed during acute care and subsequent correction with oral supplementation. Bumex will not be reinitiated at this time. Note that the patient did receive 2 units of packed red blood cells during inpatient/acute care with some Lasix also given at that time.
== END 2016-10-15 15:20 | disposition hospice, home (50) | DRG 377 ==
LOC: UNDOADMIN 13:50 → LL.MS 13:50 → UNDODISIN 10-15 15:20
PROVIDERS: ADMIT Surgery; ATTEND Family Medicine
DX: K92.2 Gastrointestinal hemorrhage, unspecified (principal); J69.0 Pneumonitis due to inhalation of food and vomit; J44.0 Chronic obstructive pulmonary disease with (acute) lower respiratory infection; C15.9 Malignant neoplasm of esophagus, unspecified; C78.00 Secondary malignant neoplasm of unspecified lung; N18.4 Chronic kidney disease, stage 4 (severe); E46 Unspecified protein-calorie malnutrition; I50.9 Heart failure, unspecified; I12.9 Hypertensive chronic kidney disease with stage 1 through stage 4 chronic kidney disease, or unspecified chronic kidney disease; E83.51 Hypocalcemia; E87.6 Hypokalemia; D72.825 Bandemia; R13.14 Dysphagia, pharyngoesophageal phase; E78.5 Hyperlipidemia, unspecified; D64.9 Anemia, unspecified; Z51.5 Encounter for palliative care; Z79.899 Other long term (current) drug therapy
CPT/HCPCS: 36415; 71010; 74000; 80053; 80202; 82150; 82550; 82553; 83690; 83735; 83880; 84484; 85025; 85610; 85730; 93005; 94640; 94664; 97116-GP; 97161-GP; A9270-GY; C9113; J0696; J2543; J2930; J3370; J7050; S0028